=== PATIENT | female | born 1990 | race Caucasian/White ===

== ENCOUNTER 2017-12-15 16:13 | Inpatient (IN) | payer MEDICAID ==
--- NOTE | 2017-12-15 17:04 | ER Document Report ---
ED Medical Screen (RME) - General Chief Complaint: High Blood Sugar Stated Complaint: NAUSEA,DIZZY,WEAK Time Seen by Provider: 12/15/17 17:04 Mode of Arrival: Ambulatory Information source: Patient Notes: 27 yr old female hx of diabetes presents with complaitns of nausea vomiting concerns for dka I have greeted and performed a rapid initial assessment of this patient. A comprehensive ED assessment and evaluation of the patient, analysis of test results and completion of the medical decision making process will be conducted by additional ED providers. PHYSICAL EXAMINATION: GENERAL: Well-appearing, well-nourished and in no acute distress. HEAD: Atraumatic, normocephalic. EYES: Pupils equal round extraocular movements intact, conjunctiva are normal. ENT: Nares patent NECK: Normal range of motion LUNGS: No respiratory distress Musculoskeletal: Normal range of motion NEUROLOGICAL: Normal speech, normal gait. PSYCH: Normal mood, normal affect. SKIN: Warm, Dry, normal turgor, no rashes or lesions noted. TRAVEL OUTSIDE OF THE [place] IN LAST 30 DAYS: No - Related Data Allergies/Adverse Reactions: chlorpromazine [From Thorazine] Allergy (Verified 12/15/17 16:18) diazepam [From Valium] Allergy (Verified 12/15/17 16:18) lamotrigine [From Lamictal] Allergy (Verified 12/15/17 16:18) lorazepam [From Ativan] Allergy (Verified 12/15/17 16:18) medroxyprogesterone [From Depo-Provera] Allergy (Verified 12/15/17 16:18) morphine Allergy (Verified 12/15/17 16:18) zolpidem [From Ambien] Allergy (Verified 12/15/17 16:18)
--- NOTE | 2017-12-15 17:19 | ER Document Report ---
ED Blood Sugar Problem <LUNA MCCOY - Last Filed: 12/15/17 19:54> - General Mode of Arrival: Ambulatory Information source: Patient TRAVEL OUTSIDE OF THE [place] IN LAST 30 DAYS: No <JOSS MORAES - Last Filed: 12/17/17 15:32> - General Chief Complaint: High Blood Sugar Stated Complaint: NAUSEA,DIZZY,WEAK Time Seen by Provider: 12/15/17 17:04 Notes: Patient is a 27 year old female with insulin dependent diabetes, familial polyposis and stage 2 renal failure presents to the emergency department complaining of multiple symptoms including nausea, vomiting, dizziness and weakness onset yesterday. Patient states she has vomited 5x today. Patient mentions running out of insulin yesterday. Patient recently moved here from [place] and has yet to establish primary care. Patient is currently taking Abilify, Lisinopril, and Omeprazole. (JOSS MORAES) - Related Data Allergies/Adverse Reactions: chlorpromazine [From Thorazine] Allergy (Verified 12/16/17 00:31) Hives diazepam [From Valium] Allergy (Verified 12/16/17 00:31) Hives lamotrigine [From Lamictal] Allergy (Verified 12/16/17 00:31) Hives lorazepam [From Ativan] Allergy (Verified 12/16/17 00:31) Hives medroxyprogesterone [From Depo-Provera] Allergy (Verified 12/16/17 00:31) Hives morphine Adverse Reaction (Verified 12/16/17 00:31) Hyperactivity zolpidem [From Ambien] Adverse Reaction (Verified 12/16/17 00:31) panic attack Past Medical History - General Information source: Patient - Social History Smoking Status: Never Smoker Chew tobacco use (# tins/day): No Frequency of alcohol use: Occasional Drug Abuse: None Family History: Reviewed & Not Pertinent Patient has suicidal ideation: No Patient has homicidal ideation: No Endocrine Medical History: Reports: Hx Diabetes Mellitus Type 1 Renal/ Medical History: Reports: Other - Stage II renal disease GI Medical History: Reports: Other - Familial polyposis Psychiatric Medical History: Reports: Hx Anxiety, Hx Bipolar Disorder, Hx Post Traumatic Stress Disorder Past Surgical History: Reports: Hx Bowel Surgery - Total colectomy, previous ileostomy. <JOSS MORAES - Last Filed: 12/17/17 15:32> Review of Systems - Review of Systems Constitutional: See HPI, Weakness EENT: No symptoms reported Cardiovascular: See HPI, Dizziness Respiratory: No symptoms reported Gastrointestinal: See HPI, Abdominal pain, Nausea, Vomiting Genitourinary: No symptoms reported Female Genitourinary: No symptoms reported Musculoskeletal: No symptoms reported Skin: No symptoms reported Hematologic/Lymphatic: No symptoms reported Neurological/Psychological: No symptoms reported -: Yes All other systems reviewed and negative <JOSS MORAES - Last Filed: 12/17/17 15:32> Physical Exam - General General appearance: Alert, Other - Appears sluggish In distress: None - HEENT Head: Normocephalic, Atraumatic Eyes: Normal Conjunctiva: Normal Extraocular movements intact: Yes Pupils: PERRL Neck: Normal - Respiratory Respiratory status: No respiratory distress Chest status: Nontender Breath sounds: Normal Chest palpation: Normal - Cardiovascular Rhythm: Regular Heart sounds: Normal auscultation Murmur: No Friction rub: No Gallop: None auscultated - Abdominal Inspection: Obese Bowel sounds: Normal Tenderness: Nontender Organomegaly: No organomegaly - Back Back: Normal - Extremities General upper extremity: Normal ROM General lower extremity: Normal ROM - Neurological Neuro grossly intact: Yes Cognition: Normal Orientation: AAOx4 Simone Coma Scale Eye Opening: Spontaneous [place] Coma Scale Verbal: Oriented Simone Coma Scale Motor: Obeys Commands [place] Coma Scale Total: 15 Speech: Normal - Psychological Associated symptoms: Normal affect, Normal mood - Skin Skin Temperature: Warm Skin Moisture: Dry Skin Color: Normal <JOSS MORAES - Last Filed: 12/17/17 15:32> - Vital signs Vitals: Resp Pulse Ox 39 H 99 12/15/17 17:07 12/15/17 17:07 Course - Laboratory Result Diagrams: 12/15/17 18:03 12/15/17 18:03 - EKG Interpretation by Me EKG shows normal: Sinus rhythm, [place], Intervals, QRS Complexes, ST-T Waves Rate: Tachycardia - 102 When compared to previous EKG there are: Previous EKG unavailable - Consults Dr. Chu Time consulted: 19:40 Consulted provider: will come to ER <LUNA MCCOY - Last Filed: 07/01/18 19:54> - Laboratory Result Diagrams: 12/17/17 04:00 12/17/17 08:00 <JOSS MORAES - Last Filed: 12/17/17 15:32> - Vital Signs Vital signs: Temp Pulse Resp BP Pulse Ox 36.9 F L 86 15 113/62 99 12/17/17 13:33 12/17/17 13:33 12/17/17 13:33 12/17/17 13:33 12/17/17 13:33 - Laboratory Laboratory results interpreted by me: 12/15/17 12/15/17 12/15/17 17:24 17:50 18:03 WBC 21.4 H Hct 47.1 H MCV 99 H Seg Neuts % (Manual) 79 H Abs Neuts (Manual) 16.9 H VBG pH VBG pCO2 VBG HCO3 Potassium Chloride Carbon Dioxide Anion Gap BUN Glucose POC Glucose > 550 H* Lactic Acid Calcium Phosphorus Direct Bilirubin Alkaline Phosphatase Creatine Kinase Urine Glucose (UA) >=500 H Urine Ketones 80 H Urine Blood SMALL H 12/15/17 12/15/17 12/15/17 18:03 18:03 18:03 WBC Hct MCV Seg Neuts % (Manual) Abs Neuts (Manual) VBG pH 7.14 L* VBG pCO2 25.8 L VBG HCO3 8.6 L Potassium 5.2 H Chloride 96 L Carbon Dioxide 8 L* Anion Gap 33 H BUN 25 H Glucose 761 H* POC Glucose Lactic Acid 3.4 H Calcium 11.3 H Phosphorus 8.0 H Direct Bilirubin 0.6 H Alkaline Phosphatase 151 H Creatine Kinase < 20 L Urine Glucose (UA) Urine Ketones Urine Blood Critical Care Note - Critical Care Note Total time excluding time spent on procedures (mins): 40 <LUNA MCCOY - Last Filed: 12/15/17 19:54> Discharge - Discharge Admitting Provider: Hospitalist Unit Admitted: ICU <LUNA MCCOY - Last Filed: 12/15/17 19:54> <JOSS MORAES - Last Filed: 12/17/17 15:32> - Discharge Clinical Impression: Has run out of medications, Bipolar disorder Diabetic ketoacidosis Qualifiers: Diabetes mellitus type: type 1 Nausea & vomiting Qualifiers: Vomiting type: unspecified Vomiting Intractability: non-intractable Qualified Code(s): R11.2 - Nausea with vomiting, unspecified Condition: Good Disposition: ADMITTED INPATIENT Scribe Attestation: 12/15/17 19:42 I personally performed the services described in the documentation, reviewed and edited the documentation which was dictated to the scribe in my presence, and it accurately records my words and actions. (LUNA MCCOY) Scribe Documentation - Scribe Written by Scribe:: Antonieta Hernadez, 12/15/2017 17:38 acting as scribe for :: Lilia <JOSS MORAES - Last Filed: 12/17/17 15:32>
[2017-12-15] MEDS ORDERED: METOCLOPRAMIDE HCL INJ/PF 10 MG/2 ML SDV IV ONE ×2 (17:43→19:05)
[2017-12-15] MEDS ORDERED: INSULIN REG, HUMAN 100 UNIT/ML 3 ML VIAL (PYX) IV ONE (17:44)
[2017-12-15] MEDS ORDERED: ONDANSETRON 4 MG TAB.RAPDIS PO ONE (17:44)
[2017-12-15] MEDS: NORMAL SALINE 1000 ML 1,000 ML IV PRN ×2 (18:12→18:37)
[2017-12-15 18:21] LABS: VENOUS BLOOD BASE EXCESS -18.7 mmol/L; VENOUS BLOOD HCO3 8.6 mmol/L (20-32); VENOUS BLOOD PCO2 25.8 mmHg (35-63)
[2017-12-15 18:24] LABS: APPEARANCE,URINE CLEAR; BILIRUBIN,URINE NEGATIVE (NEGATIVE); COLOR,URINE STRAW; GLUCOSE, URINE >=500 mg/dL (NEGATIVE); KETONES,URINE 80 mg/dL (NEGATIVE); LEUKOCYTE ESTERASE,URINE NEGATIVE (NEGATIVE); NITRITE,URINE NEGATIVE (NEGATIVE); PROTEIN,URINE NEGATIVE (NEGATIVE); URINE SPECIFIC GRAVITY 1.024; UROBILINOGEN,URINE NEGATIVE mg/dL (<2.0)
[2017-12-15 18:24] LABS: VENOUS BLOOD PH 7.14 (7.30-7.42)
[2017-12-15 18:27] LABS: HEMATOCRIT 47.1 % (36.0-47.0); HEMOGLOBIN 15.5 g/dL (12.0-15.5); MEAN CORPUSCULAR HEMOGLOBIN 32.4 pg (27.0-33.4); MEAN CORPUSCULAR HGB CONC 32.9 g/dL (32.0-36.0); MEAN CORPUSCULAR VOLUME 99 fl (80-97); PLATELET COUNT 343 10^3/uL (150-450); RED BLOOD COUNT 4.78 10^6/uL (3.72-5.28); RED CELL DISTRIBUTION WIDTH 13.2 % (11.5-14.0); WHITE BLOOD COUNT 21.4 10^3/uL (4.0-10.5)
[2017-12-15 18:37] LABS: ALANINE AMINOTRANSFERASE 28 U/L (9-52); ALBUMIN 4.9 g/dL (3.5-5.0); ALKALINE PHOSPHATASE 151 U/L (38-126); ASPARTATE AMINO TRANSFERASE 16 U/L (14-36); BILIRUBIN,DIRECT 0.6 mg/dL (0.0-0.4); BILIRUBIN,TOTAL 1.1 mg/dL (0.2-1.3); BLOOD UREA NITROGEN 25 mg/dL (7-20); CALCIUM 11.3 mg/dL (8.4-10.2); TOTAL PROTEIN 7.7 g/dL (6.3-8.2)
[2017-12-15 18:41] LABS: CREATINE KINASE < 20 U/L (30-135)
[2017-12-15 18:42] LABS: CHLORIDE 96 mmol/L (98-107); POTASSIUM 5.2 mmol/L (3.6-5.0); SODIUM 137.4 mmol/L (137-145)
[2017-12-15 18:44] LABS: ABSOLUTE LYMPHOCYTES# (MANUAL) 3.9 10^3/uL (0.5-4.7); ABSOLUTE MONOCYTES # (MANUAL) 0.6 10^3/uL (0.1-1.4); ABSOLUTE NEUTROPHILS# (MANUAL) 16.9 10^3/uL (1.7-8.2); BASOPHILS % (MANUAL) 0 % (0-2); EOSINOPHILS % (MANUAL) 0 % (0-6); LYMPHOCYTES % (MANUAL) 18 % (13-45); MONOCYTES % (MANUAL) 3 % (3-13); PLATELET CLUMPS PRESENT; PLATELET COMMENT ADEQUATE; RBC MORPHOLOGY COMMENT NORMO-CYTIC/CHROMIC; SEGMENTED NEUTROPHILS % (MAN) 79 % (42-78); TOTAL CELLS COUNTED 100
[2017-12-15] MEDS ORDERED: NORMAL SALINE 1000 ML 1,000 ML IV ONE (18:44)
[2017-12-15 18:46] LABS: ANION GAP 33 (5-19)
[2017-12-15 18:49] LABS: CARBON DIOXIDE 8 mmol/L (22-30); GLUCOSE 761 mg/dL (75-110)
[2017-12-15 19:01] LABS: URINE AMPHETAMINES SCREEN NEGATIVE; URINE BARBITURATES SCREEN NEGATIVE; URINE BENZODIAZEPINES SCREEN NEGATIVE; URINE COCAINE SCREEN NEGATIVE; URINE MARIJUANA (THC) SCREEN UNCONFIRMED POSITIVE; URINE METHADONE SCREEN NEGATIVE; URINE PHENCYCLIDINE SCREEN NEGATIVE
[2017-12-15] MEDS ORDERED: DEXTROSE 50%-WATER 25 GM/50 ML DISP.SYRIN IV PRN ×5 (20:48→21:01)
[2017-12-15] MEDS ORDERED: GLUCAGON,HUMAN RECOMB 1 MG INJ IM PRN ×2 (20:48→21:01)
[2017-12-15] MEDS ORDERED: GLUCAGON,HUMAN RECOMB 1 MG INJ SUBCUT PRN (20:48)
[2017-12-15] MEDS ORDERED: ONDANSETRON HCL INJ/PF 4 MG/2 ML SDV IV PRN (20:48)
[2017-12-15] MEDS ORDERED: NORMAL SALINE 1000 ML 1,000 ML IV PRN (20:48)
[2017-12-15] MEDS ORDERED: ACETAMINOPHEN 325 MG TABLET PO PRN (20:48)
[2017-12-15] MEDS ORDERED: DEXTROSE 40% GEL 15 GM TUBE PO PRN ×6 (20:48→21:01)
[2017-12-15] MEDS ORDERED: NORMAL SALINE 100 ML with INSULIN REGULAR, HUMAN 100 UNIT IV PRN ×2 (21:01)
[2017-12-15 21:17] LABS: PROTHROMBIN TIME 13.7 SEC (11.4-15.4)
[2017-12-15 21:18] LABS: PARTIAL THROMBOPLASTIN TIME 29.7 SEC (23.5-35.8)
[2017-12-15] MEDS ORDERED: PROMETHAZINE HCL 25 MG SUPP.RECT PR ONE (21:23)
--- NOTE | 2017-12-15 21:59 | RADIOLOGY REPORT (SQ) ---
EXAM DESCRIPTION: CHEST SINGLE VIEW COMPLETED DATE/TIME: 12/15/2017 9:52 pm REASON FOR STUDY: DKA COMPARISON: None. EXAM PARAMETERS: NUMBER OF VIEWS: One view. TECHNIQUE: Single frontal radiographic view of the chest acquired. RADIATION DOSE: NA LIMITATIONS: None. FINDINGS: LUNGS AND PLEURA: No opacities, masses or pneumothorax. No pleural effusion. MEDIASTINUM AND HILAR STRUCTURES: No masses. Contour normal. HEART AND VASCULAR STRUCTURES: Heart normal in size. Normal vasculature. BONES: No acute findings. HARDWARE: None in the chest. OTHER: No other significant finding. IMPRESSION: NO ACUTE RADIOGRAPHIC FINDING IN THE CHEST. TECHNICAL DOCUMENTATION: JOB ID: [id number] [employer]- All Rights Reserved Reading location - IP/workstation name: [email or web address]
[2017-12-15] MEDS ORDERED: INSULIN REG, HUMAN 100 UNIT/ML 3 ML VIAL (PYX) ONE (22:32)
[2017-12-15] MEDS: PANTOPRAZOLE SODIUM 40 MG VIAL IV SCH (22:45)
[2017-12-15] MEDS: HEPARIN SOD (PORCINE) 5,000 UNIT/ML 1 ML SYRINGE SUBCUT SCH (22:46)
--- NOTE | 2017-12-15 23:08 | PDOC H&P ---
History of Present Illness Admission Date/PCP: 12/15/17 20:01 Patient complains of: Nausea vomiting History of Present Illness: GERALDO DUNBAR is a 27 year old woman who has type 1 diabetes. She not able to tell me much of the history as she is feeling nauseated. She also tells me that she has told several people the story already and she would prefer I get the information from them. What she was able to tell me is that she just moved from [place] to [place] to live with her boyfriend. She is working on getting her SSI transferred to [place] and does not have her insurance yet and yesterday she ran out of insulin for her insulin pump. Earlier today she started to have some chest discomfort along with nausea vomiting and abdominal pain. Her blood glucose was very elevated and secondary to all of those findings and extreme weakness she came into the ER. She has been diagnosed with diabetic ketoacidosis and is being admitted to the hospitalist service, to the ICU. Past Medical History Cardiac Medical History: Denies: Atrial Fibrillation, Congestive Heart Failure Pulmonary Medical History: Denies: Asthma EENT Medical History: Denies: Eyes, Ears Neurological Medical History: Denies: Ischemic CVA Endocrine Medical History: Reports: Diabetes Mellitus Type 1 Renal/ Medical History: Reports: Chronic Kidney Disease, Other - Stage II renal disease Malignancy Medical History: Denies: None GI Medical History: Reports: Other - Familial polyposis Musculoskeltal Medical History: Denies: Arthritis Skin Medical History: Reports: Eczema Denies: None Psychiatric Medical History: Reports: Bipolar Disorder, Post Traumatic Stress Disorder Hematology: Denies: Anemia, Sickle Cell Disease Infectious Medical History: Reports: Other Infectious History Note: Unknown Past Surgical History Past Surgical History: Reports: Other - 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 Social History Information Source: Patient, Emergency Med Personnel, [facility] Records Occupation: Unemployed currently, just moved from [place] Lives with: Spouse/Significant other Smoking Status: Never Smoker Frequency of Alcohol Use: Rare Hx Recreational Drug Use: Yes - Marijuana Hx Prescription Drug Abuse: No - Advance Directive Resuscitation Status: Full Code Surrogate healthcare decision maker:: Adelso justice. Phone [phone] Family History Parental Family History Reviewed: Yes - Mother has bipolar disorder, father familial polyposis Children Family History Reviewed: Yes - one healthy son Sibling(s) Family History Reviewed.: Yes - No significant history Medication/Allergy Allergies/Adverse Reactions: chlorpromazine [From Thorazine] Allergy (Verified 12/15/17 16:18) diazepam [From Valium] Allergy (Verified 12/15/17 16:18) lamotrigine [From Lamictal] Allergy (Verified 12/15/17 16:18) lorazepam [From Ativan] Allergy (Verified 12/15/17 16:18) medroxyprogesterone [From Depo-Provera] Allergy (Verified 12/15/17 16:18) morphine Allergy (Verified 12/15/17 16:18) zolpidem [From Ambien] Allergy (Verified 12/15/17 16:18) Review of Systems ROS unobtainable: Other - Due to feeling too nauseated, she does not answer all review of systems questions so I cannot obtain full review All systems: reviewed and no additional remarkable complaints except as stated Constitutional: PRESENT: anorexia, fatigue Cardiovascular: PRESENT: chest pain. ABSENT: dyspnea on exertion, edema Gastrointestinal: PRESENT: abdominal pain, diarrhea - Chronic diarrhea, nausea, vomiting. ABSENT: hematochezia, melena Genitourinary: ABSENT: difficulty urinating, dysuria, hematuria Musculoskeletal: ABSENT: back pain Integumentary: ABSENT: erythema, wounds Neurological: PRESENT: weakness. ABSENT: abnormal speech, confusion, dizziness , syncope Psychiatric: PRESENT: anxiety, depression Endocrine: PRESENT: other - Insulin pump, other episodes of DKA and hospitalization in the past Hematologic/Lymphatic: ABSENT: easy bleeding, easy bruising, lymphadenopathy Allergic/Immunologic: ABSENT: seasonal rhinorrhea Physical Exam General appearance: PRESENT: disheveled, mild distress, obese Head exam: PRESENT: atraumatic, normocephalic Eye exam: PRESENT: conjunctiva pink, EOMI. ABSENT: periorbital swelling, scleral icterus Mouth exam: PRESENT: dry mucosa, neck supple, tongue midline Neck exam: ABSENT: lymphadenopathy, tenderness Respiratory exam: PRESENT: clear to auscultation ruth, unlabored. ABSENT: chest wall tenderness, crackles, decreased breath sounds, rales, rhonchi, wheezes Cardiovascular exam: PRESENT: tachycardia. ABSENT: systolic murmur - split S2 Pulses: PRESENT: normal radial pulses Vascular exam: PRESENT: normal capillary refill GI/Abdominal exam: PRESENT: normal bowel sounds, soft. ABSENT: distended, firm , guarding, tenderness Rectal exam: PRESENT: deferred Gentrourinary exam: ABSENT: indwelling catheter Extremities exam: ABSENT: pedal edema Musculoskeletal exam: PRESENT: ambulatory. ABSENT: deformity Neurological exam: PRESENT: alert, awake, oriented to person, oriented to place , oriented to situation, CN II-XII grossly intact Psychiatric exam: PRESENT: anxious Skin exam: PRESENT: dry, intact, warm Results Impressions: Chest X-Ray 12/15/17 00:00 IMPRESSION: NO ACUTE RADIOGRAPHIC FINDING IN THE CHEST. Assessment & Plan - Diagnosis (1) Diabetic ketoacidosis Qualifiers: Diabetes mellitus type: type 1 Diabetes mellitus complication detail: without coma Qualified Code(s): E10.10 - Type 1 diabetes mellitus with ketoacidosis without coma Is this a current diagnosis for this admission?: Yes Plan: Patient has an insulin pump for her type 1 diabetes. She just moved here from [place] and ran out of her insulin yesterday. She has diabetic ketoacidosis currently. She is being admitted to the hospitalist service on an insulin drip. She is still undergoing fluid hydration and electrolytes are being checked every 2 hours. Unfortunately secondary to difficulty with IV access I have ordered a surgery consult for central line placement for tonight. Her lactic acid level is slightly elevated and I will follow that. Diabetic nutrition teaching ordered. Etiology of DKA is likely that she ran out of her medications. Nonetheless I have ordered troponins, lipase, chest x-ray, blood cultures to assess for other underlying etiology of DKA. UA is negative. (2) Bipolar disorder Qualifiers: Psychotic features: without psychotic features Is this a current diagnosis for this admission?: Yes Plan: Patient is on Abilify 10 mg . Start this medication once she is no longer having emesis. (3) Has run out of medications Is this a current diagnosis for this admission?: Yes Plan: Have ordered case management consult to assess for needs. (4) Nausea & vomiting Qualifiers: Vomiting type: unspecified Vomiting Intractability: non-intractable Qualified Code(s): R11.2 - Nausea with vomiting, unspecified Is this a current diagnosis for this admission?: Yes Plan: Likely secondary to DKA. Lipase has been ordered. Will order her home meds once she is no longer having vomiting. We tried some Reglan and Zofran with out to good effect. I have ordered a Phenergan suppository 12.5 mg 1 and will see how she does with this. She is being fluid hydrated. (5) Depression with anxiety Is this a current diagnosis for this admission?: Yes Plan: Patient is on Cymbalta and gabapentin. She states that the gabapentin is not neuropathy but is for her anxiety. Will start these medications when she stops vomiting. (6) Hyperlipidemia Is this a current diagnosis for this admission?: Yes Plan: Patient is on atorvastatin 40 mg daily. Will start this when she stops vomiting. (7) GERD (gastroesophageal reflux disease) Is this a current diagnosis for this admission?: Yes Plan: have started IV PPI - Time Time Spent: 50 to 70 Minutes Medications reviewed and adjusted accordingly: Yes - Inpatient Certification Based on my medical assessment, after consideration of the patient's comorbidities, presenting symptoms, or acuity I expect that the services needed warrant INPATIENT care.: Yes I certify that my determination is in accordance with my understanding of Medicare's requirements for reasonable and necessary INPATIENT services [42 CFR 412.3e].: Yes Medical Necessity: Need For IV Fluids, Need For Continuous Telemetry Monitoring
[2017-12-15] MEDS ORDERED: ATORVASTATIN CALCIUM 40 MG TABLET PO ONE (23:45)
[2017-12-15] MEDS ORDERED: PROMETHAZINE HCL INJ 25 MG/1 ML VIAL IV ONE (23:45)
[2017-12-15] MEDS ORDERED: PROMETHAZINE HCL INJ 25 MG/1 ML VIAL ONE (23:45)
[2017-12-16 00:24] LABS: ARTERIAL BLOOD BASE EXCESS -20.6 mmol/L; ARTERIAL BLOOD H2CO3 0.97 mmol/L (1.05-1.35); ARTERIAL BLOOD HCO3 8.8 mmol/L (20-26); ARTERIAL BLOOD O2 SATURATION 42.2 % (94-98); ARTERIAL BLOOD PCO2 32.2 mmHg (35-45); ARTERIAL BLOOD TOTAL CO2 9.8 mmol/L (21-25)
[2017-12-16 00:25] LABS: ARTERIAL BLOOD FIO2 ROOM AIR
[2017-12-16 00:26] LABS: ARTERIAL BLOOD PH 7.06 (7.35-7.45); ARTERIAL BLOOD PO2 32.7 mmHg (80-100)
[2017-12-16 00:29] LABS: BLOOD UREA NITROGEN 19 mg/dL (7-20); LIPASE 33.4 U/L (23-300); POTASSIUM 4.7 mmol/L (3.6-5.0)
[2017-12-16 00:35] LABS: CHLORIDE 112 mmol/L (98-107); GLUCOSE 397 mg/dL (75-110); SODIUM 144.8 mmol/L (137-145)
[2017-12-16] MEDS: POTASSI CL 20 MEQ/NS 1L 1,000 ML IV PRN ×2 (00:37→05:42)
[2017-12-16 00:53] LABS: ANION GAP 24 (5-19)
[2017-12-16 00:54] LABS: CARBON DIOXIDE 9 mmol/L (22-30)
[2017-12-16] MEDS ORDERED: ONDANSETRON HCL INJ/PF 4 MG/2 ML SDV ONE (01:06)
[2017-12-16 01:11] LABS: ARTERIAL BLOOD BASE EXCESS -20.3 mmol/L; ARTERIAL BLOOD H2CO3 0.58 mmol/L (1.05-1.35); ARTERIAL BLOOD HCO3 6.5 mmol/L (20-26); ARTERIAL BLOOD O2 SATURATION 97.5 % (94-98); ARTERIAL BLOOD PO2 123.2 mmHg (80-100); ARTERIAL BLOOD TOTAL CO2 7.1 mmol/L (21-25)
[2017-12-16 01:24] LABS: ARTERIAL BLOOD FIO2 ROOM AIR
[2017-12-16 01:25] LABS: ARTERIAL BLOOD PH 7.15 (7.35-7.45)
[2017-12-16 01:26] LABS: ARTERIAL BLOOD PCO2 19.4 mmHg (35-45)
[2017-12-16] MEDS ORDERED: PROMETHAZINE HCL INJ 25 MG/1 ML VIAL IV ONE (02:30)
[2017-12-16] MEDS ORDERED: NORMAL SALINE INJ/PF 0.9% 10 ML SDV IV PRN (02:51)
[2017-12-16 02:54] LABS: BLOOD UREA NITROGEN 17 mg/dL (7-20); CALCIUM 8.9 mg/dL (8.4-10.2); GLUCOSE 310 mg/dL (75-110); POTASSIUM 4.7 mmol/L (3.6-5.0)
[2017-12-16 03:00] LABS: CHLORIDE 115 mmol/L (98-107); SODIUM 148.5 mmol/L (137-145)
[2017-12-16 03:07] LABS: ANION GAP 25 (5-19)
[2017-12-16 03:08] LABS: CARBON DIOXIDE 9 mmol/L (22-30)
[2017-12-16] MEDS: NORMAL SALINE 1000 ML 1,000 ML IV PRN ×2 (03:38→05:42)
--- NOTE | 2017-12-16 03:45 | OPERATIVE REPORT E ---
Operative Report NAME: GERALDO DUNBAR : 1990 AGE: 27Y DATE OF SURGERY: 12/15/2017 ROOM: 608 PREOPERATIVE DIAGNOSIS: POOR VEINS FOR INTRAVENOUS ACCESS. POSTOPERATIVE DIAGNOSIS: POOR VEINS FOR INTRAVENOUS ACCESS. PROCEDURE: Placement of central line. SURGEON: ANKIT RAY M.D. ANESTHESIA: Local. INDICATION: A 27-year-old female admitted for DKA, needed IV access since peripheral veins are difficult to get. DESCRIPTION OF PROCEDURE: The patient is placed in Trendelenburg position and the left neck prepped and draped in usual sterile fashion. With use of the ultrasound, the left internal jugular vein is identified. Local incision infiltrated along the path of the internal jugular vein and subsequently aspirated and a guidewire placed through the needle, advanced to the superior vena cava. The insertion site was dilated and a triple-lumen catheter inserted to a distance of about 15 cm. The guidewire was removed and all 3 ports aspirated blood easily and infused saline easily. Catheter was then anchored in the skin with 3-0 silk and Biopatch placed at the insertion site and transparent dressing placed over the Biopatch and catheter. Chest x-ray will be obtained for placement. The patient tolerated the procedure well. DICTATING PHYSICIAN: ANKIT RAY M.D. [id number] PHY#: [id number] ID: [id number] JOB#: [id number] ACCT: [id number] cc:ANKIT RAY M.D. >
[2017-12-16 05:07] LABS: ANION GAP 16 (5-19); BLOOD UREA NITROGEN 16 mg/dL (7-20); CALCIUM 8.1 mg/dL (8.4-10.2); CARBON DIOXIDE 12 mmol/L (22-30); CHLORIDE 119 mmol/L (98-107); GLUCOSE 219 mg/dL (75-110); POTASSIUM 4.7 mmol/L (3.6-5.0); SODIUM 147.3 mmol/L (137-145)
[2017-12-16] MEDS ORDERED: NORMAL SALINE 1000 ML 1,000 ML IV PRN (05:25)
[2017-12-16] MEDS: GABAPENTIN 300 MG CAPSULE PO SCH ×3 (05:33→21:07)
[2017-12-16] MEDS: HEPARIN SOD (PORCINE) 5,000 UNIT/ML 1 ML SYRINGE SUBCUT SCH ×3 (05:42→21:08)
[2017-12-16 06:39] LABS: ANION GAP 17 (5-19); BLOOD UREA NITROGEN 14 mg/dL (7-20); CALCIUM 7.8 mg/dL (8.4-10.2); CARBON DIOXIDE 11 mmol/L (22-30); CHLORIDE 121 mmol/L (98-107); CHOLESTEROL 109.48 mg/dL (0-200); GLUCOSE 191 mg/dL (75-110); SODIUM 149.2 mmol/L (137-145); TRIGLYCERIDES 150 mg/dL (<150)
[2017-12-16 06:50] LABS: DIRECT LDL 54 mg/dL (<100)
--- NOTE | 2017-12-16 06:53 | EKG REPORT ---
SEVERITY:- NORMAL ECG - SINUS RHYTHM : Confirmed by: Shayla Dias MD 16-Dec-2017 06:53:09
--- NOTE | 2017-12-16 06:54 | EKG REPORT ---
SEVERITY:- OTHERWISE NORMAL ECG - SINUS TACHYCARDIA : Confirmed by: Shayla Dias MD 16-Dec-2017 06:53:13
[2017-12-16 07:22] LABS: PHOSPHORUS 2.8 mg/dL (2.5-4.5)
--- NOTE | 2017-12-16 07:22 | RADIOLOGY REPORT (SQ) ---
EXAM DESCRIPTION: CHEST SINGLE VIEW COMPLETED DATE/TIME: 12/15/2017 11:45 pm REASON FOR STUDY: Central Line Placement COMPARISON: 12/15/2017 at 2146 hours chest film EXAM PARAMETERS: NUMBER OF VIEWS: One view. TECHNIQUE: Single frontal radiographic view of the chest acquired. RADIATION DOSE: NA LIMITATIONS: None. FINDINGS: LUNGS AND PLEURA: No opacities, masses or pneumothorax. No pleural effusion. MEDIASTINUM AND HILAR STRUCTURES: No masses. Contour normal. HEART AND VASCULAR STRUCTURES: Heart normal in size. Normal vasculature. BONES: No acute findings. HARDWARE: Right jugular central venous catheter tip in the SVC/right atrium. No pneumothorax OTHER: No other significant finding. IMPRESSION: Right jugular line in good positioning. No pneumothorax TECHNICAL DOCUMENTATION: JOB ID: [id number] [employer]- All Rights Reserved Reading location - IP/workstation name: [email or web address]
[2017-12-16] MEDS ORDERED: POTASSI CL 20 MEQ/D5-1/2NS 1L 1,000 ML IV PRN (08:14)
[2017-12-16 08:57] LABS: HEMATOCRIT 36.4 % (36.0-47.0); MEAN CORPUSCULAR HGB CONC 33.9 g/dL (32.0-36.0); PLATELET COUNT 280 10^3/uL (150-450); RED BLOOD COUNT 3.86 10^6/uL (3.72-5.28); RED CELL DISTRIBUTION WIDTH 13.1 % (11.5-14.0)
[2017-12-16 08:58] LABS: MEAN CORPUSCULAR VOLUME 94 fl (80-97)
[2017-12-16 09:01] LABS: HEMOGLOBIN 12.3 g/dL (12.0-15.5)
[2017-12-16] MEDS: PANTOPRAZOLE SODIUM 40 MG VIAL IV SCH (10:08)
[2017-12-16] MEDS: DULOXETINE HCL 30 MG CAPSULE.DR PO SCH (10:08)
[2017-12-16] MEDS: ARIPIPRAZOLE 5 MG TABLET PO SCH (10:09)
[2017-12-16 10:38] LABS: ANION GAP 17 (5-19); BLOOD UREA NITROGEN 13 mg/dL (7-20); CALCIUM 8.1 mg/dL (8.4-10.2); CARBON DIOXIDE 12 mmol/L (22-30); CHLORIDE 120 mmol/L (98-107); GLUCOSE 171 mg/dL (75-110); POTASSIUM 4.3 mmol/L (3.6-5.0); SODIUM 149.2 mmol/L (137-145)
--- NOTE | 2017-12-16 11:40 | PROGRESS NOTE E ---
Progress Note NAME: GERALDO DUNBAR : 1990 AGE: 27Y DATE: 12/16/2017 ROOM: 608 CHIEF COMPLAINT: Nausea. SUBJECTIVE: The patient is lying in bed. The patient has had multiple episodes of nausea from vomiting, but mostly retching throughout the evening. The patient responded the best to Phenergan. It is interesting that the patient is unaware of her basal rate when she wears a pump. The patient is unable to even give me an idea of what her basal rate is. The patient states that when her pump is not working she does use Lantus and Humalog, but is unable to give me an exact amount that she uses. The patient thinks she uses 40 of Lantus, but is unable to give me basal rate coverage and so forth. Additionally, the patient does have chronic pain for which she treats with nonmedical marijuana as well as Neurontin. The patient, overnight, remained afebrile. Her blood pressures are in a good range, and the patient has been exclusively on room air. REVIEW OF SYSTEMS: Rest of review of systems is negative. MEDICATIONS: Medications have been reviewed. OBJECTIVE: GENERAL: The patient is a 27-year-old female who is awake, alert. She is oriented to person, place, time, and situation. She is verbal, conversational, does not appear to be distressed. VITAL SIGNS: Temperature is 98.7, pulse 89, respirations 22, blood pressure is 104/63, oxygen saturation is 100% on room air. SKIN: Warm and dry. No rash. She is not diaphoretic. HEENT: Pupils are reactive. There is no evidence of JVP. Ketotic breath. CHEST: Clear, symmetrical, unlabored. ABDOMEN: Soft, nontender, nondistended. BACK: No CVA tenderness or sacral edema. EXTREMITIES: No clubbing, cyanosis, edema. PSYCHIATRIC: The patient does have an odd affect. DIAGNOSTICS: Lab values are as follows: Hematology obtained on 12/16/2017 are pending. Hematology obtained on 12/15/2017: WBCs are 21.4, hemoglobin is 15.5, hematocrit is 27.1, platelet count is 343,000. Chemistry obtained on 12/16/2017: Sodium is 149, potassium 4.0, chloride is 121, carbon dioxide is 11, BUN 14, creatinine is 0.63, glucose 191, calcium is 7.8, phosphorus 2.8, magnesium is 1.7, triglycerides are 150, cholesterol 109, LDL 54, VLDL of 30, HDL is 35. IMPRESSION AND PLAN: 1. DIABETIC KETOACIDOSIS. The patient's gap is closed. She does remain acidotic from a metabolic standpoint. Will continue volume resuscitation; however, given the patient's blood glucose is less than 200, will transition over to D5 and a half with 20 of K. For fluids, continue at this point. Will continue the drip as the patient is still not able to tolerate significant and follow. 2. MEDICAL NONCOMPLIANCE. The patient came from [place] with no diabetic supplies. The patient is unable to give exact basal rates or coverage. Once the patient is able to tolerate p.o., will transition to subcu Lantus with sliding scale coverage and follow. 3. CHRONIC PAIN. APPEARS TO BE A PERIPHERAL NEUROPATHY. Continue the patient's Neurontin. 4. MARIJUANA USE. Uncertain of the degree of this. May possibly be an ailment of THC withdrawal or cyclic vomiting from THC. 5. DEPRESSION WITH ANXIETY. Continue the patient's home medications. 6. HYPERLIPIDEMIA. The patient is on Lipitor outpatient basis. 7. GERD. The patient continues on PPI therapy. DISPOSITION: The patient is a FULL CODE. Pending patient's symptomatology and diagnostic findings, will re-evaluate as needed. Time spent on this critical care visit including assessment, plan, physical examination, patient education, review of records is 30 minutes. DICTATING PHYSICIAN: KLEVER KHOURY NP [id number] PHY#: [id number] ID: [id number] JOB#: [id number] ACCT: [id number] cc: > [facility]
[2017-12-16 12:45] LABS: ANION GAP 13 (5-19); BLOOD UREA NITROGEN 11 mg/dL (7-20); CALCIUM 8.1 mg/dL (8.4-10.2); CARBON DIOXIDE 15 mmol/L (22-30); CHLORIDE 116 mmol/L (98-107); GLUCOSE 229 mg/dL (75-110); POTASSIUM 3.8 mmol/L (3.6-5.0); SODIUM 144.2 mmol/L (137-145)
[2017-12-16] MEDS ORDERED: INSULIN GLARGINE,HUM.REC.ANLOG 1,000 UNIT/10 ML UNIT SUBCUT ONE (13:27)
[2017-12-16] MEDS ORDERED: DEXTROSE 40% GEL 15 GM TUBE PO PRN ×3 (13:31→18:45)
[2017-12-16] MEDS ORDERED: GLUCAGON,HUMAN RECOMB 1 MG INJ IM PRN ×2 (13:31→18:45)
[2017-12-16] MEDS ORDERED: INSULIN LISPRO 100 UNIT/ML 3 ML VIAL SUBCUT PRN (13:31)
[2017-12-16] MEDS ORDERED: DEXTROSE 50%-WATER 25 GM/50 ML DISP.SYRIN IV PRN ×2 (13:31)
[2017-12-16] MEDS ORDERED: ONDANSETRON HCL INJ/PF 4 MG/2 ML SDV IV PRN (14:00)
[2017-12-16] MEDS ORDERED: INSULIN GLARGINE,HUM.REC.ANLOG 300 UNIT/3 ML INSULN.PEN SUBCUT ONE (15:00)
[2017-12-16] MEDS ORDERED: PROMETHAZINE HCL 25 MG SUPP.RECT PR PRN (15:38)
[2017-12-16] MEDS ORDERED: SCOPOLAMINE HYDROBROMIDE 1.5 MG PATCH.TD72 TD ONE (17:00)
[2017-12-16 18:20] LABS: BLOOD UREA NITROGEN 10 mg/dL (7-20); CALCIUM 8.4 mg/dL (8.4-10.2); GLUCOSE 348 mg/dL (75-110); POTASSIUM 3.5 mmol/L (3.6-5.0)
[2017-12-16 18:33] LABS: CHLORIDE 114 mmol/L (98-107)
[2017-12-16 18:34] LABS: ANION GAP 20 (5-19); SODIUM 141.9 mmol/L (137-145)
[2017-12-16 18:36] LABS: CARBON DIOXIDE 8 mmol/L (22-30)
[2017-12-16] MEDS ORDERED: DEXTROSE 50%-WATER SYRINGE 25 GM/50 ML DOSE IV PRN (18:45)
[2017-12-16] MEDS ORDERED: DEXTROSE 50%-WATER SYRINGE 12.5 GM/25 ML DOSE IV PRN (18:45)
[2017-12-16] MEDS ORDERED: INSULIN, REGULAR 100 UNIT/100 ML NORMAL SALINE IV PRN ×2 (18:45)
[2017-12-16] MEDS ORDERED: DEXTROSE 40% GEL 15 GM TUBE X 2 PO PRN (18:45)
[2017-12-16] MEDS ORDERED: NORMAL SALINE 1000 ML 1,000 ML IV ONE (19:00)
[2017-12-16 20:45] LABS: ANION GAP 16 (5-19); BLOOD UREA NITROGEN 8 mg/dL (7-20); CALCIUM 7.9 mg/dL (8.4-10.2); CHLORIDE 116 mmol/L (98-107); GLUCOSE 227 mg/dL (75-110); POTASSIUM 3.9 mmol/L (3.6-5.0); SODIUM 141.5 mmol/L (137-145)
[2017-12-16] MEDS: POTASSI CL 20 MEQ/50 ML RIDER 20 MEQ/50 ML RTUPB IV SCH ×2 (21:02→22:43)
[2017-12-16] MEDS: ATORVASTATIN CALCIUM 40 MG TABLET PO SCH (21:08)
[2017-12-16] MEDS: POTASSI CL 20 MEQ/D5-1/2NS 1L 1000 ML IV PRN (21:10)
[2017-12-16 21:29] LABS: CARBON DIOXIDE 10 mmol/L (22-30)
[2017-12-16] MEDS ORDERED: INSULIN GLARGINE,HUM.REC.ANLOG 300 UNIT/3 ML INSULN.PEN SUBCUT SCH (22:00)
[2017-12-17 00:23] LABS: ANION GAP 8 (5-19); BLOOD UREA NITROGEN 7 mg/dL (7-20); CALCIUM 7.9 mg/dL (8.4-10.2); CARBON DIOXIDE 17 mmol/L (22-30); CHLORIDE 116 mmol/L (98-107); GLUCOSE 139 mg/dL (75-110); POTASSIUM 3.8 mmol/L (3.6-5.0); SODIUM 140.7 mmol/L (137-145)
[2017-12-17] MEDS: POTASSI CL 20 MEQ/D5-1/2NS 1L 1000 ML IV PRN (02:04)
[2017-12-17 04:18] LABS: HEMATOCRIT 30.8 % (36.0-47.0); HEMOGLOBIN 10.7 g/dL (12.0-15.5); MEAN CORPUSCULAR HEMOGLOBIN 32.6 pg (27.0-33.4); MEAN CORPUSCULAR HGB CONC 34.9 g/dL (32.0-36.0); MEAN CORPUSCULAR VOLUME 93 fl (80-97); PLATELET COUNT 208 10^3/uL (150-450); RED CELL DISTRIBUTION WIDTH 13.3 % (11.5-14.0); WHITE BLOOD COUNT 12.3 10^3/uL (4.0-10.5)
[2017-12-17 04:50] LABS: ANION GAP 7 (5-19); BLOOD UREA NITROGEN 5 mg/dL (7-20); CALCIUM 7.7 mg/dL (8.4-10.2); CARBON DIOXIDE 16 mmol/L (22-30); CHLORIDE 116 mmol/L (98-107); GLUCOSE 181 mg/dL (75-110); POTASSIUM 3.7 mmol/L (3.6-5.0); SODIUM 139.1 mmol/L (137-145)
[2017-12-17] MEDS ORDERED: POTASSI CL 20 MEQ/D5-1/2NS 1L 1000 ML IV PRN (06:00)
[2017-12-17] MEDS: POTASSIUM CHLORIDE 20 MEQ/15 ML UDCUP PO SCH ×2 (06:18→08:28)
[2017-12-17] MEDS: GABAPENTIN 300 MG CAPSULE PO SCH ×3 (06:19→22:56)
[2017-12-17] MEDS: HEPARIN SOD (PORCINE) 5,000 UNIT/ML 1 ML SYRINGE SUBCUT SCH ×3 (06:20→22:56)
[2017-12-17 09:11] LABS: ANION GAP 6 (5-19); BLOOD UREA NITROGEN 4 mg/dL (7-20); CALCIUM 8.2 mg/dL (8.4-10.2); CARBON DIOXIDE 18 mmol/L (22-30); CHLORIDE 118 mmol/L (98-107); GLUCOSE 88 mg/dL (75-110); POTASSIUM 3.9 mmol/L (3.6-5.0); SODIUM 142.4 mmol/L (137-145)
[2017-12-17] MEDS: ARIPIPRAZOLE 5 MG TABLET PO SCH (10:10)
[2017-12-17] MEDS: DULOXETINE HCL 30 MG CAPSULE.DR PO SCH (10:10)
[2017-12-17] MEDS ORDERED: INSULIN LISPRO 100 UNIT/ML 3 ML VIAL SUBCUT ONE (11:30)
[2017-12-17] MEDS ORDERED: INSULIN GLARGINE,HUM.REC.ANLOG 1,000 UNIT/10 ML UNIT SUBCUT ONE (11:30)
--- NOTE | 2017-12-17 13:51 | PDOC PROGRESS REPORT ---
Subjective Progress Note for:: 12/17/17 Subjective:: This is a 27 years old female patient admitted in DKA. This morning I seen patient while she is resting in bed. She is awake alert oriented and she is eager to go home. But patient is still on insulin drip. After patient tolerated her breakfast we discontinued the drip and started on Lantus and Humalog. Blood glucose is 195. Patient downgraded and will be transferred to the [facility]. Reason For Visit: DIABETIC KETOACIDOSIS Physical Exam Vital Signs: Temp Pulse Resp BP Pulse Ox 36.9 F L 86 15 113/62 99 12/17/17 13:33 12/17/17 13:33 12/17/17 13:33 12/17/17 13:33 12/17/17 13:33 Intake & Output 12/16/17 12/17/17 12/18/17 06:59 06:59 06:59 Intake Total 5375 6601 Output Total 2625 2300 1000 Balance 2750 4301 -1000 Weight 87.5 kg Results Laboratory Results: 12/17/17 04:00 12/17/17 08:00 12/16/17 12/16/17 12/17/17 16:55 20:00 00:00 WBC RBC Hgb Hct MCV MCH MCHC RDW Plt Count Sodium 141.9 141.5 140.7 Potassium 3.5 L 3.9 3.8 Chloride 114 H 116 H 116 H Carbon Dioxide 8 L* 10 L* 17 L Anion Gap 20 H 16 8 BUN 10 8 7 Creatinine 0.64 0.59 0.52 Est GFR ( Amer) > 60 > 60 > 60 Est GFR (Non-Af Amer) > 60 > 60 > 60 Glucose 348 H 227 H 139 H Calcium 8.4 7.9 L 7.9 L 12/17/17 12/17/17 12/17/17 04:00 04:00 08:00 WBC 12.3 H RBC 3.30 L Hgb 10.7 L Hct 30.8 L MCV 93 MCH 32.6 MCHC 34.9 RDW 13.3 Plt Count 208 Sodium 139.1 142.4 Potassium 3.7 3.9 Chloride 116 H 118 H Carbon Dioxide 16 L 18 L Anion Gap 7 6 BUN 5 L 4 L Creatinine 0.49 L 0.49 L Est GFR ( Amer) > 60 > 60 Est GFR (Non-Af Amer) > 60 > 60 Glucose 181 H 88 Calcium 7.7 L 8.2 L 12/16/17 12/16/17 00:07 02:00 Troponin I < 0.012 < 0.012 Impressions: Chest X-Ray 12/15/17 00:00 IMPRESSION: Right jugular line in good positioning. No pneumothorax Assessment & Plan - Diagnosis (1) Diabetic ketoacidosis Qualifiers: Diabetes mellitus type: type 1 Is this a current diagnosis for this admission?: Yes Plan: Her insulin drip discontinued and patient started on subcu Humalog and Lantus. Patient is well tolerates well. Her latest blood glucose level is 195. (3) Bipolar disorder Qualifiers: Psychotic features: without psychotic features Is this a current diagnosis for this admission?: Yes Plan: Current regimen.
[2017-12-17] MEDS: INSULIN LISPRO 100 UNIT/ML 3 ML VIAL SUBCUT PRN ×2 (16:45→22:55)
[2017-12-17] MEDS ORDERED: INSULIN GLARGINE,HUM.REC.ANLOG 300 UNIT/3 ML INSULN.PEN SUBCUT SCH (22:00)
[2017-12-17] MEDS ORDERED: DIPHENHYDRAMINE HCL 25 MG CAPSULE ONE (22:42)
[2017-12-17] MEDS ORDERED: DIPHENHYDRAMINE HCL 25 MG CAPSULE PO ONE (22:45)
[2017-12-17] MEDS: ATORVASTATIN CALCIUM 40 MG TABLET PO SCH (22:55)
[2017-12-17] MEDS: INSULIN GLARGINE,HUM.REC.ANLOG 1,000 UNIT/10 ML UNIT SUBCUT SCH (23:10)
[2017-12-18] MEDS: GABAPENTIN 300 MG CAPSULE PO SCH (05:37)
[2017-12-18] MEDS: HEPARIN SOD (PORCINE) 5,000 UNIT/ML 1 ML SYRINGE SUBCUT SCH (05:37)
[2017-12-18 06:36] LABS: HEMATOCRIT 30.6 % (36.0-47.0); MEAN CORPUSCULAR HEMOGLOBIN 33.1 pg (27.0-33.4); MEAN CORPUSCULAR VOLUME 92 fl (80-97); PLATELET COUNT 207 10^3/uL (150-450); RED BLOOD COUNT 3.32 10^6/uL (3.72-5.28); WHITE BLOOD COUNT 7.4 10^3/uL (4.0-10.5)
[2017-12-18 06:57] LABS: ANION GAP 11 (5-19); BLOOD UREA NITROGEN 3 mg/dL (7-20); CALCIUM 8.4 mg/dL (8.4-10.2); CARBON DIOXIDE 20 mmol/L (22-30); CHLORIDE 112 mmol/L (98-107); GLUCOSE 107 mg/dL (75-110); POTASSIUM 3.3 mmol/L (3.6-5.0); SODIUM 142.7 mmol/L (137-145)
--- NOTE | 2017-12-18 09:08 | PDOC DISCHARGE SUMMARY ---
General - Admit/Disc Date/PCP Admission Date/Primary Care Provider: 12/15/17 20:01 Discharge Date: 12/18/17 - Discharge Diagnosis (1) Diabetic ketoacidosis Is this a current diagnosis for this admission?: Yes (3) Bipolar disorder Is this a current diagnosis for this admission?: Yes - Additional Information Resuscitation Status: Full Code Home Medications: Albuterol Sulfate [Proair HFA Inhalation Aerosol 8.5 gm MDI] 1 puff IH Q4HP PRN 12/16/17 Aripiprazole [Abilify] 10 mg PO QHS 12/16/17 Atorvastatin Calcium [Lipitor 40 mg Tablet] 40 mg PO QHS 12/16/17 Duloxetine HCl [Cymbalta] 30 mg PO QHS 12/16/17 Gabapentin [Neurontin 300 mg Capsule] 300 mg PO Q12 12/16/17 Hydroxyzine Pamoate [Vistaril 50 mg Capsule] 50 mg PO DAILYP PRN 12/16/17 Ibuprofen [Motrin 800 mg Tablet] 800 mg PO DAILYP PRN 12/16/17 Insulin Lispro [Humalog Insulin (Lispro) 100 unit/mL] 67 unit PUMP DAILY Lisinopril [Prinivil 2.5 mg Tablet] 2.5 mg PO QHS 12/16/17 Ondansetron [Zofran Odt 4 mg Tablet] 4 mg PO Q4HP PRN 12/16/17 Tramadol HCl [Ultram 50 mg Tablet] 50 mg PO Q12HP PRN 12/16/17 Trazodone HCl [Desyrel 50 mg Tablet] 50 mg PO QHS 12/16/17 History of Present Illness History of Present Illness: GERALDO DUNBAR is a 27 year old female who has type 1 diabetes. She not able to tell me much of the history as she is feeling nauseated. She also tells me that she has told several people the story already and she would prefer I get the information from them. What she was able to tell me is that she just moved from [place] to [place] to live with her boyfriend. She is working on getting her SSI transferred to [place] and does not have her insurance yet and yesterday she ran out of insulin for her insulin pump. Earlier today she started to have some chest discomfort along with nausea vomiting and abdominal pain. Her blood glucose was very elevated and secondary to all of those findings and extreme weakness she came into the ER. She has been diagnosed with diabetic ketoacidosis and is being admitted to the hospitalist service, to the ICU. Hospital Course Hospital Course: This is 27 years old female patient originally from [place], admitted with impression of diabetic ketoacidosis. Patient admitted to the ICU where she has been treated with insulin drip IV hydration and replacement of her electrolytes. Yesterday patient switched to subcu long-acting insulin and short -acting Humalog after she is able to eat and tolerate food. Patient uses insulin pump for her diabetes but she ran out of medication. I will send there was prescription for Humalog for her insulin pump. Patient advised to follow- up with her primary care physician or her primary endocrinologists. And also advised to comply with her medication and watch her diet. This morning I seen patient resting in bed comfortably she is not in pain or any form of distress. She is awake alert and oriented. His vital signs and her labs are within normal limits. Patient is good to go. Physical Exam Vital Signs: Temp Pulse Resp BP Pulse Ox 97.8 F 76 20 137/70 H 100 12/18/17 04:17 12/18/17 04:17 12/18/17 04:17 12/18/17 04:17 12/18/17 04:17 Intake & Output 12/17/17 12/18/17 12/19/17 06:59 06:59 06:59 Intake Total 6601 256 Output Total 2300 1000 Balance 4301 -744 General appearance: PRESENT: no acute distress, well-developed, well-nourished Head exam: PRESENT: atraumatic, normocephalic Eye exam: PRESENT: conjunctiva pink, EOMI, PERRLA. ABSENT: scleral icterus Ear exam: PRESENT: normal external ear exam Mouth exam: PRESENT: moist, tongue midline Neck exam: ABSENT: carotid bruit, JVD, lymphadenopathy, thyromegaly Respiratory exam: PRESENT: clear to auscultation ruth. ABSENT: rales, rhonchi, wheezes Cardiovascular exam: PRESENT: RRR. ABSENT: diastolic murmur, rubs, systolic murmur Pulses: PRESENT: normal dorsalis pedis pul Vascular exam: PRESENT: normal capillary refill GI/Abdominal exam: PRESENT: normal bowel sounds, soft. ABSENT: distended, guarding, mass, organolmegaly, rebound, tenderness Rectal exam: PRESENT: deferred Extremities exam: PRESENT: full ROM. ABSENT: calf tenderness, clubbing, pedal edema Neurological exam: PRESENT: alert, awake, oriented to person, oriented to place , oriented to time, oriented to situation. ABSENT: motor sensory deficit Psychiatric exam: PRESENT: appropriate affect, normal mood. ABSENT: homicidal ideation, suicidal ideation Skin exam: PRESENT: dry, intact, warm. ABSENT: cyanosis, rash Results Laboratory Results: 12/18/17 05:45 12/18/17 05:45 12/17/17 12/18/17 12/18/17 08:00 05:45 05:45 WBC 7.4 RBC 3.32 L Hgb 11.0 L Hct 30.6 L MCV 92 MCH 33.1 MCHC 36.0 RDW 13.0 Plt Count 207 Sodium 142.4 142.7 Potassium 3.9 3.3 L Chloride 118 H 112 H Carbon Dioxide 18 L 20 L Anion Gap 6 11 BUN 4 L 3 L Creatinine 0.49 L 0.51 L Est GFR ( Amer) > 60 > 60 Est GFR (Non-Af Amer) > 60 > 60 Glucose 88 107 Calcium 8.2 L 8.4 Magnesium 1.6 12/16/17 12/16/17 00:07 02:00 Troponin I < 0.012 < 0.012 Impressions: Chest X-Ray 12/15/17 00:00 IMPRESSION: Right jugular line in good positioning. No pneumothorax Qualifiers - * PATIENT BEING DISCHARGED WITH ANY OF THE FOLLOWING DIAGNOSIS: No
[2017-12-18 10:42] VITALS: BP 113/62
[2017-12-18] MEDS: ARIPIPRAZOLE 5 MG TABLET PO SCH (10:45)
[2017-12-18] MEDS: DULOXETINE HCL 30 MG CAPSULE.DR PO SCH (10:46)
[2017-12-18] MEDS: INSULIN GLARGINE,HUM.REC.ANLOG 1,000 UNIT/10 ML UNIT SUBCUT SCH (10:46)
== END 2017-12-18 11:04 | disposition home or self-care (01) | DRG 639 ==
LOC: ER 16:13 → EH 20:01 → ICU 22:27 → 3W 12-17 13:24
PROVIDERS: ADMIT Internal Medicine; ATTEND Internal Medicine
PROC: 02HV33Z Insertion of Infusion Device into Superior Vena Cava, Percutaneous Approach (ICD-10-PCS; principal; 2017-12-15)
DX: E10.10 Type 1 diabetes mellitus with ketoacidosis without coma (principal); F31.9 Bipolar disorder, unspecified; N18.2 Chronic kidney disease, stage 2 (mild); L30.9 Dermatitis, unspecified; F43.10 Post-traumatic stress disorder, unspecified; E10.22 Type 1 diabetes mellitus with diabetic chronic kidney disease; F41.9 Anxiety disorder, unspecified; E66.9 Obesity, unspecified; E78.00 Pure hypercholesterolemia, unspecified; K21.9 Gastro-esophageal reflux disease without esophagitis; G89.29 Other chronic pain; Z68.32 Body mass index [BMI] 32.0-32.9, adult; Z79.899 Other long term (current) drug therapy; Z79.4 Long term (current) use of insulin; Z96.41 Presence of insulin pump (external) (internal); Z90.49 Acquired absence of other specified parts of digestive tract; Z88.6 Allergy status to analgesic agent; Z88.8 Allergy status to other drugs, medicaments and biological substances; Z91.14 Patient's other noncompliance with medication regimen; Z81.8 Family history of other mental and behavioral disorders
CPT/HCPCS: 36415; 71045; 80048; 80053; 80061; 80307; 81001; 82550; 82803; 82962; 83036; 83605; 83690; 83735; 84100; 84484; 84703; 85025; 85027; 85610; 85730; 87040; 93005; 93010; 96360; 99291; C1751; J1642; J1644; J1815; J2405; J2550; J2765; J3480; J3490; J7030; S0119; S0164

== ENCOUNTER 2018-01-17 07:49 | Emergency (ER) | payer MEDICAID ==
[2018-01-17] MEDS ORDERED: NORMAL SALINE 1000 ML 1,000 ML IV ONE (08:17)
[2018-01-17] MEDS ORDERED: METOCLOPRAMIDE HCL INJ/PF 10 MG/2 ML SDV IV ONE (08:23)
--- NOTE | 2018-01-17 08:40 | ER Document Report ---
ED General - General Chief Complaint: Nausea/Vomiting Stated Complaint: VOMITING Time Seen by Provider: 01/17/18 08:14 TRAVEL OUTSIDE OF THE [place] IN LAST 30 DAYS: No - HPI Notes: Patient is a 27-year-old female with a past medical history significant for insulin dependent diabetes, familial polyposis and stage 2 renal failure (on lisinopril) who presents to the ED complaining of nausea, vomiting, intermittent abdominal cramping in her epigastrium 2 days. Patient states that she is running low on her insulin and does not have an appointment with her PCM until June should be her first visit. Patient states that she has not had any blood in her vomit. She still able to eat and drink, but does have a decreased p.o. intake. Patient states that she has had urinary urgency. She is having normal bowel movements. No other concerns or complaints at this time. Pt was in DKA 1mo ago, but states that she does not believe it to be the case this time. Denies any headache, fever, URI, sore throat, chest pain, palpitations, syncope, cough, shortness of breath, wheeze, dyspnea, diarrhea, hematuria, back pain, loss of control of bowel or bladder, numbness/tingling, muscle paralysis/weakness, or rash. - Related Data Allergies/Adverse Reactions: chlorpromazine [From Thorazine] Allergy (Verified 01/17/18 07:51) Hives diazepam [From Valium] Allergy (Verified 01/17/18 07:51) Hives lamotrigine [From Lamictal] Allergy (Verified 01/17/18 07:51) Hives lorazepam [From Ativan] Allergy (Verified 01/17/18 07:51) Hives medroxyprogesterone [From Depo-Provera] Allergy (Verified 01/17/18 07:51) Hives morphine Adverse Reaction (Verified 01/17/18 07:51) Hyperactivity zolpidem [From Ambien] Adverse Reaction (Verified 01/17/18 07:51) panic attack Past Medical History - Social History Smoking Status: Current Every Day Smoker Family History: Reviewed & Not Pertinent - Past Medical History Cardiac Medical History: Denies: Hx Atrial Fibrillation, Hx Congestive Heart Failure Pulmonary Medical History: Denies: Hx Asthma Endocrine Medical History: Reports: Hx Diabetes Mellitus Type 1 Renal/ Medical History: Denies: Hx Peritoneal Dialysis Musculoskeletal Medical History: Denies Hx Arthritis Skin Medical History: Reports Hx Eczema Psychiatric Medical History: Reports: Hx Anxiety, Hx Bipolar Disorder, Hx Post Traumatic Stress Disorder Past Surgical History: Reports: Hx Bowel Surgery - Total colectomy, previous ileostomy., Other - 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 Review of Systems - Review of Systems -: Yes All other systems reviewed and negative Physical Exam - Vital signs Vitals: Temp Pulse Resp BP Pulse Ox 98.3 F 114 H 18 134/88 H 96 01/17/18 07:53 01/17/18 07:53 01/17/18 07:53 01/17/18 07:53 01/17/18 07:53 - Notes Notes: PHYSICAL EXAMINATION: GENERAL: Well-appearing, well-nourished and in no acute distress. HEAD: Atraumatic, normocephalic. EYES: Pupils equal round and reactive to light, extraocular movements intact, sclera anicteric, conjunctiva are normal. ENT: Nares patent and without discharge. oropharynx clear without exudates. No tonsilar hypertrophy or erythema. Moist mucous membranes. NECK: Normal range of motion, supple without lymphadenopathy LUNGS: Breath sounds clear to auscultation bilaterally and equal. No wheezes rales or rhonchi. HEART: Regular rate and rhythm without murmurs, rubs, gallops. ABDOMEN: Soft, nondistended abdomen. No guarding, no rebound. No masses appreciated. Normal bowel sounds present. No CVA tenderness bilaterally. + mild epigastric tenderness. Hernandez neg. No tenderness at McBurney point. Musculoskeletal: FROM to passive/active. Strength 5+/5. Extremities: No cyanosis, clubbing, or edema b/l. Peripheral pulses 2+. Capillary refill less than 3 seconds. NEUROLOGICAL: Normal speech, normal gait. PSYCH: Normal mood, normal affect. SKIN: Warm, Dry, normal turgor, no rashes or lesions noted. Course - Re-evaluation Re-evalutation: 01/17/18 11:53 Patient is an afebrile, well-hydrated, 27-year-old female who presents to the ED with epigastric pain and acute UTI. Vitals are acceptable without any significant tachycardia, tachypnea, or hypoxia. PE is otherwise unremarkable. Patient's abdomen is currently soft and nontender. Patient did receive a GI cocktail and fluids which resolved patient's symptoms. Patient states that she is feeling much better at this time and is ready to go home. Her CBC, CMP, hCG , venous blood gas, lipase, lactic acid were unremarkable for any acute pathology. See urinalysis results which did have some contaminant, but trace bacteria showing up. I will start her on Keflex while we wait for urine culture which will not be ready until Saturday. Advised patient to start the medications and then call Saturday for further guidance at that time based on her urine culture results. Patient is tolerating p.o. without any difficulties and is nontoxic-appearing. Low suspicion/risk for acute appendicitis, bowel obstruction, acute cholecystitis, acute cholangitis, perforated diverticulitis, incarcerated hernia, pancreatitis, perforated ulcer, peritonitis, sepsis, pelvic inflammatory disease, ectopic , tubo-ovarian abscess, ovarian torsion, or other systemic emergent condition at this time. Patient is aware that her condition can change from initial presentation and she needs to monitor symptoms closely and seek medical attention if any acute changes. I will send her home with a prescription for omeprazole and Carafate as well as Zofran in addition to the Keflex. Conservative measures otherwise for symptoms. Recheck with your PCM in 2-3 days. Consider consult with a equal opportunity director. Return to the ED with any worsening/concerning symptoms otherwise as reviewed in discharge. Patient is in agreement. - Vital Signs Vital signs: Temp Pulse Resp BP Pulse Ox 98.3 F 114 H 18 107/47 L 97 01/17/18 07:53 01/17/18 07:53 01/17/18 11:01 01/17/18 11:01 01/17/18 11:01 - Laboratory Result Diagrams: 01/17/18 10:02 01/17/18 10:02 Laboratory results interpreted by me: 01/17/18 01/17/18 01/17/18 10:02 10:02 10:40 WBC 10.8 H Glucose 112 H Urine Protein >=500 H Urine Glucose (UA) 50 H Urine Ketones TRACE H Urine Blood SMALL H Urine Bilirubin SMALL H Urine Urobilinogen 2.0 H Discharge - Discharge Clinical Impression: Epigastric pain, Acute UTI (urinary tract infection) Condition: Stable Disposition: HOME, SELF-CARE Instructions: Cephalexin ([facility]), Urinary Tract Infection ([facility]), Abdominal Pain ( [facility]), Antinausea Medication ([facility]), Family Physicians / Practices Additional Instructions: Push fluids (i.e. water, cranberry juice) Proper hygenic technique Keep the skin clean Tylenol/ibuprofen as needed Take medications as directed F/u with your PCM in 2-3 days for a recheck Consider consult with a Urologist/equal opportunity director for ongoing/worsening symptoms. Return to the ED with any worsening symptoms and/or development of fever, headache, chest pain, palpitations, syncope, shortness of breath, trouble breathing, abdominal pain, n/v/d, blood in stool/urine, loss of control of bowel /bladder, urinary retention, or other worsening symptoms that are concerning to you. Prescriptions: Cephalexin Monohydrate [Keflex 500 mg Capsule] 500 mg PO TID #21 capsule Insulin Lispro [Humalog] 100 unit SQ ASDIR 30 Days cartridge Omeprazole 20 mg PO DAILY #30 tablet. Ondansetron [Zofran Odt 4 mg Tablet] 1 - 2 tab PO Q4H PRN #15 tab.rapdis PRN Reason: For Nausea/Vomiting Sucralfate [Carafate] 1 gm PO QID PRN #420 ml PRN Reason: Forms: Smoking Cessation Education Referrals: [facility] [Provider Group] - Follow up as needed [facility] [Provider Group] - Follow up as needed
[2018-01-17 10:19] LABS: VENOUS BLOOD BASE EXCESS 2.4 mmol/L; VENOUS BLOOD HCO3 27.5 mmol/L (20-32); VENOUS BLOOD PCO2 44.4 mmHg (35-63); VENOUS BLOOD PH 7.41 (7.30-7.42)
[2018-01-17 10:22] LABS: ABSOLUTE EOSINOPHILS # (AUTO) 0.3 10^3/uL (0.0-0.6); ABSOLUTE MONOCYTES (AUTO) 0.7 10^3/uL (0.1-1.4); ABSOLUTE NEUT (AUTO) 7.8 10^3/uL (1.7-8.2); BASOPHILS % (AUTO) 0.3 % (0-2); EOSINOPHILS % (AUTO) 2.7 % (0-6); HEMATOCRIT 40.5 % (36.0-47.0); LYMPHOCYTES % (AUTO) 18.5 % (13-45); MEAN CORPUSCULAR HEMOGLOBIN 32.3 pg (27.0-33.4); MEAN CORPUSCULAR HGB CONC 34.6 g/dL (32.0-36.0); MEAN CORPUSCULAR VOLUME 94 fl (80-97); MONOCYTES % (AUTO) 6.1 % (3-13); PLATELET COUNT 324 10^3/uL (150-450); RED BLOOD COUNT 4.33 10^6/uL (3.72-5.28); RED CELL DISTRIBUTION WIDTH 13.3 % (11.5-14.0); SEGMENTED NEUTROPHILS % (AUTO) 72.4 % (42-78); TOTAL CELLS COUNTED % (AUTO) 100 %; WHITE BLOOD COUNT 10.8 10^3/uL (4.0-10.5)
[2018-01-17 10:40] LABS: ALANINE AMINOTRANSFERASE 36 U/L (9-52); ALBUMIN 3.8 g/dL (3.5-5.0); ALKALINE PHOSPHATASE 97 U/L (38-126); ANION GAP 13 (5-19); ASPARTATE AMINO TRANSFERASE 24 U/L (14-36); BILIRUBIN,DIRECT 0.2 mg/dL (0.0-0.4); BILIRUBIN,TOTAL 0.9 mg/dL (0.2-1.3); BLOOD UREA NITROGEN 12 mg/dL (7-20); CALCIUM 9.5 mg/dL (8.4-10.2); CARBON DIOXIDE 25 mmol/L (22-30); CHLORIDE 105 mmol/L (98-107); GLUCOSE 112 mg/dL (75-110); LIPASE 32.4 U/L (23-300); POTASSIUM 3.8 mmol/L (3.6-5.0); SODIUM 142.7 mmol/L (137-145); TOTAL PROTEIN 6.5 g/dL (6.3-8.2)
[2018-01-17] MEDS ORDERED: LIDOCAINE 2% VISCOUS SOLN 20 ML UDCUP PO ONE (10:55)
[2018-01-17] MEDS ORDERED: METOCLOPRAMIDE HCL ORAL SOLN 10 MG/10 ML UDCUP PO ONE (10:55)
[2018-01-17] MEDS ORDERED: MAG HYDROX/AL HYDROX/SIMETH SUSP 30 ML UDCUP PO ONE (10:55)
[2018-01-17 11:32] LABS: AMORPHOUS SEDIMENT,URINE TRACE /HPF; APPEARANCE,URINE TURBID; BILIRUBIN,URINE SMALL (NEGATIVE); COLOR,URINE AMBER; GLUCOSE, URINE 50 mg/dL (NEGATIVE); KETONES,URINE TRACE mg/dL (NEGATIVE); LEUKOCYTE ESTERASE,URINE NEGATIVE (NEGATIVE); NITRITE,URINE NEGATIVE (NEGATIVE); PROTEIN,URINE >=500 mg/dL (NEGATIVE); URINE SPECIFIC GRAVITY 1.032
[2018-01-17 12:55] VITALS: BP 124/71
== END 2018-01-17 12:55 | disposition home or self-care (01) ==
LOC: ER 07:49
DX: N39.0 Urinary tract infection, site not specified (principal); R10.13 Epigastric pain; R11.2 Nausea with vomiting, unspecified; E10.9 Type 1 diabetes mellitus without complications; Z79.4 Long term (current) use of insulin
CPT/HCPCS: 99284; 96361; 96374; 36415; 83605; 83690; 85025; 81025; 80053; 81001; 82803; J3490 ×3; J2765; J7030

== ENCOUNTER 2018-01-18 16:26 | Emergency (ER) | payer MEDICAID ==
[2018-01-18] MEDS ORDERED: FAMOTIDINE 20 MG TABLET PO ONE (17:28)
[2018-01-18] MEDS ORDERED: ONDANSETRON 4 MG TAB.RAPDIS PO ONE (17:28)
--- NOTE | 2018-01-18 17:30 | ER Document Report ---
ED Medical Screen (RME) - General Chief Complaint: Nausea/Vomiting Stated Complaint: NAUSEA/VOMITING Time Seen by Provider: 01/18/18 16:44 Notes: 27-year-old female to the emergency department complaining of nausea vomiting and abdominal pain. Patient states that she was seen here yesterday and discharge with Zofran but nothing is helping. States that she cannot keep anything down. Blood sugars been running over 200. Patient is a type I diabetic. I have greeted and performed a rapid initial assessment of this patient. A comprehensive ED assessment and evaluation of the patient, analysis of test results and completion of the medical decision making process will be conducted by additional ED providers. TRAVEL OUTSIDE OF THE [place] IN LAST 30 DAYS: No - Related Data Allergies/Adverse Reactions: chlorpromazine [From Thorazine] Allergy (Verified 01/18/18 16:27) Hives diazepam [From Valium] Allergy (Verified 01/18/18 16:27) Hives lamotrigine [From Lamictal] Allergy (Verified 01/18/18 16:27) Hives lorazepam [From Ativan] Allergy (Verified 01/18/18 16:27) Hives medroxyprogesterone [From Depo-Provera] Allergy (Verified 01/18/18 16:27) Hives morphine Adverse Reaction (Verified 01/18/18 16:27) Hyperactivity zolpidem [From Ambien] Adverse Reaction (Verified 01/18/18 16:27) panic attack Past Medical History - Social History Chew tobacco use (# tins/day): No Frequency of alcohol use: Occasional Drug Abuse: None - Past Medical History Cardiac Medical History: Denies: Hx Atrial Fibrillation, Hx Congestive Heart Failure Pulmonary Medical History: Denies: Hx Asthma Endocrine Medical History: Reports: Hx Diabetes Mellitus Type 1 Renal/ Medical History: Denies: Hx Peritoneal Dialysis Musculoskeltal Medical History: Denies Hx Arthritis Skin Medical History: Reports Hx Eczema Psychiatric Medical History: Reports: Hx Anxiety, Hx Bipolar Disorder, Hx Post Traumatic Stress Disorder Past Surgical History: Reports: Hx Bowel Surgery - Total colectomy, previous ileostomy., Other - 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 - Immunizations History of Influenza Vaccine for 03/2017 - 08/2017 Season: Unknown Review of Systems - Review of Systems Notes: Review of systems positive for the following: Pain, nausea, vomiting, hyperglycemia, UTI Physical Exam - Vital signs Vitals: Temp Pulse Resp BP Pulse Ox 99.3 F 93 20 127/75 H 97 01/18/18 16:36 01/18/18 16:36 01/18/18 16:36 01/18/18 16:36 01/18/18 16:36 Interpretation: Normal - General General appearance: Appears well, Alert - Respiratory Respiratory status: No respiratory distress Chest status: Nontender Breath sounds: Normal Chest palpation: Normal - Cardiovascular Rhythm: Regular Heart sounds: Normal auscultation Murmur: No - Abdominal Inspection: Normal Distension: No distension Bowel sounds: Normal Tenderness: Nontender Organomegaly: No organomegaly Course - Vital Signs Vital signs: Temp Pulse Resp BP Pulse Ox 99.3 F 93 20 127/75 H 97 01/18/18 16:36 01/18/18 16:36 01/18/18 16:36 01/18/18 16:36 01/18/18 16:36
[2018-01-18 18:22] LABS: APPEARANCE,URINE SLIGHTLY-CLOUDY; BILIRUBIN,URINE NEGATIVE (NEGATIVE); COLOR,URINE YELLOW; GLUCOSE, URINE >=500 mg/dL (NEGATIVE); KETONES,URINE TRACE mg/dL (NEGATIVE); LEUKOCYTE ESTERASE,URINE NEGATIVE (NEGATIVE); NITRITE,URINE NEGATIVE (NEGATIVE); PROTEIN,URINE 30 mg/dL (NEGATIVE); URINE SPECIFIC GRAVITY 1.031; UROBILINOGEN,URINE NEGATIVE mg/dL (<2.0)
--- NOTE | 2018-01-18 19:11 | ER Document Report ---
ED GI/ - General Chief Complaint: Nausea/Vomiting Stated Complaint: NAUSEA/VOMITING Time Seen by Provider: 01/18/18 16:44 Mode of Arrival: Ambulatory Information source: Patient Notes: 27-year-old female presented ED for complaint of nausea vomiting and abdominal pain. She states she was seen yesterday discharged home with [facility] but she is continued to vomit. She is a type I diabetic. She states her sugar was 260 around 4:00 and she took the insulin that she has normally takes with her insulin pump. TRAVEL OUTSIDE OF THE [place] IN LAST 30 DAYS: No - HPI Patient complains to provider of: Abdominal pain, Vomiting Timing/Duration: Persistent Quality of pain: Cramping Severity at maximum: Moderate Severity in ED: Moderate Pain Level: 4 Location: Other - Generalized abdominal pain Associated symptoms: Nausea, Vomiting Exacerbated by: Denies Relieved by: Denies Similar symptoms previously: Yes Recently seen / treated by doctor: Yes - Related Data Allergies/Adverse Reactions: chlorpromazine [From Thorazine] Allergy (Verified 01/18/18 16:27) Hives diazepam [From Valium] Allergy (Verified 01/18/18 16:27) Hives lamotrigine [From Lamictal] Allergy (Verified 01/18/18 16:27) Hives lorazepam [From Ativan] Allergy (Verified 01/18/18 16:27) Hives medroxyprogesterone [From Depo-Provera] Allergy (Verified 01/18/18 16:27) Hives morphine Adverse Reaction (Verified 01/18/18 16:27) Hyperactivity zolpidem [From Ambien] Adverse Reaction (Verified 01/18/18 16:27) panic attack Past Medical History - General Information source: Patient - Social History Smoking Status: Current Every Day Smoker Cigarette use (# per day): Yes - Pack per day Chew tobacco use (# tins/day): No Smoking Education Provided: Yes - 4 min Frequency of alcohol use: Social Drug Abuse: Marijuana - States she has not smoked pot in the last week Lives with: Family Family History: Reviewed & Not Pertinent Patient has suicidal ideation: No Patient has homicidal ideation: No - Past Medical History Cardiac Medical History: Reports: None Pulmonary Medical History: Reports: None EENT Medical History: Reports: None Neurological Medical History: Reports: None Endocrine Medical History: Reports: Hx Diabetes Mellitus Type 1 Renal/ Medical History: Reports: None Malignancy Medical History: Reports: None GI Medical History: Reports: Other - Familial polyposis total colectomy ileostomy then with reanastomosis Musculoskeletal Medical History: Reports None Skin Medical History: Reports Hx Eczema Psychiatric Medical History: Reports: Hx Anxiety, Hx Bipolar Disorder, Hx Post Traumatic Stress Disorder Traumatic Medical History: Reports: None Infectious Medical History: Reports: None Past Surgical History: Reports: Hx Bowel Surgery - Total colectomy, previous ileostomy with reanastomosis to rectum., Other - 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 Review of Systems - Review of Systems Constitutional: No symptoms reported EENT: No symptoms reported Cardiovascular: No symptoms reported Respiratory: No symptoms reported Gastrointestinal: Abdominal pain, Nausea, Vomiting Genitourinary: No symptoms reported Female Genitourinary: No symptoms reported Musculoskeletal: No symptoms reported Skin: No symptoms reported Hematologic/Lymphatic: No symptoms reported Neurological/Psychological: No symptoms reported -: Yes All other systems reviewed and negative Physical Exam - Vital signs Vitals: Temp Pulse Resp BP Pulse Ox 99.3 F 93 20 127/75 H 97 01/18/18 16:36 01/18/18 16:36 01/18/18 16:36 01/18/18 16:36 01/18/18 16:36 Interpretation: Normal - General General appearance: Appears well, Alert - HEENT Head: Normocephalic, Atraumatic Eyes: Normal Pupils: PERRL - Respiratory Respiratory status: No respiratory distress Chest status: Nontender Breath sounds: Normal Chest palpation: Normal - Cardiovascular Rhythm: Regular Heart sounds: Normal auscultation Murmur: No - Abdominal Inspection: Healed incision - Abdominal scars multiple from multiple surgeries Distension: No distension Bowel sounds: Normal Tenderness: Tender. No: McBurney's point, Hernandez's sign, Guarding, Rebound Organomegaly: No organomegaly - Back Back: Normal, Nontender - Extremities General upper extremity: Normal inspection, Nontender, Normal color, Normal ROM , Normal temperature General lower extremity: Normal inspection, Nontender, Normal color, Normal ROM , Normal temperature, Normal weight bearing. No: Hans's sign - Neurological Neuro grossly intact: Yes Cognition: Normal Orientation: AAOx4 [place] Coma Scale Eye Opening: Spontaneous [place] Coma Scale Verbal: Oriented [place]one Coma Scale Motor: Obeys Commands Simone Coma Scale Total: 15 Speech: Normal Motor strength normal: LUE, RUE, LLE, RLE Sensory: Normal - Psychological Associated symptoms: Normal affect, Normal mood - Skin Skin Temperature: Warm Skin Moisture: Dry Skin Color: Normal Course - Re-evaluation Re-evalutation: 01/18/18 21:36 Labs discussed with patient and written report of labs given to patient. Patient was treated with a liter of fluids and medications that were prescribed and PIP. Patient verbalized understanding and agreement with treatment plan. Patient was discharged home with a prescription for Phenergan. Patient was given multiple doctors names and numbers to follow-up as she states she cannot get into her doctor until June. - Vital Signs Vital signs: Temp Pulse Resp BP Pulse Ox 98.4 F 70 16 124/78 100 01/18/18 21:20 01/18/18 21:20 01/18/18 21:20 01/18/18 21:20 01/18/18 21:20 - Laboratory Result Diagrams: 01/18/18 20:10 01/18/18 20:10 Laboratory results interpreted by me: 01/18/18 01/18/18 17:31 20:10 Sodium 145.1 H Glucose 127 H Urine Protein 30 H Urine Glucose (UA) >=500 H Urine Ketones TRACE H Urine Blood SMALL H Discharge - Discharge Clinical Impression: Nausea & vomiting Qualifiers: Vomiting type: unspecified Vomiting Intractability: non-intractable Qualified Code(s): R11.2 - Nausea with vomiting, unspecified Condition: Stable Disposition: HOME, SELF-CARE Instructions: Family Physicians / Practices Additional Instructions: VOMITING: Vomiting (or nausea without vomiting) can be caused by many other different problems. It can mean that something's wrong with the stomach, such as ulcers or inflammation or the intestinal tract, such as appendicitis. But it can also be a symptom of a problem that has nothing to do with the stomach or intestines. Vomiting is common with severe headaches, earaches, tonsillitis, and kidney infections, etc. We see it with pneumonia or heart attacks. Drugs can cause nausea and vomiting. Many abdominal problems cause vomiting; for example, gallstones, kidney stones, pancreatitis, and intestinal obstruction ( blocked bowels). In most cases, curing the vomiting depends on fixing the problem that caused it. For temporary relief, we may use an anti-nausea medicine. For home use, we can prescribe suppositories, chewable pills, pills that dissolve in the mouth, or liquid anti-nausea drugs. If the vomiting seems to be caused by a problem in the stomach, acid-suppressing drugs may be prescribed as well. It's important to avoid dehydration. Sip small amounts of clear liquids ( soft drinks, tea, broth, etc) . Try to take fluids frequently even if you are vomiting to prevent dehydration. Take increasing amounts of fluid and when liquids are being consumed successfully, advance to small amounts of bland food (toast, soups, mashed potatoes, etc.) until you are able to resume a regular diet. Avoid aspirin, tobacco, and alcohol. If the vomiting worsens, if the problem that's making you vomit worsens, or if there's evidence of bleeding in the stomach (such as black, tarry stool, or bloody or black vomit), you should return immediately. Also, return if abdominal pain worsens or becomes localized to one area or you develop high fever. Call your doctor if you aren't improved in 24 hours. VIRAL SYNDROME: The physician has diagnosed a viral infection. Viruses not only cause "colds," but can cause many different symptoms including generalized aching, fever, headache, cough, diarrhea, nausea, vomiting, and fatigue. The treatment, for the most part, is simply relief of symptoms. This means that antibiotics are usually not given. Rest, fluids, pain medications and, occasionally, medication for the specific symptoms that are most bothersome will be prescribed. Use good handwashing to avoid passing the virus to others. Shared toys should be cleaned with disinfectant. Clean the toilets, sinks, and counter surfaces in bathrooms. Launder clothing in hot water. Contact the physician if you develop any new or unusual symptoms such as severe headache, stiff neck, high fever, chest pain, productive cough, or shortness of breath. You should be rechecked if you don't see marked improvement within seven to 10 days. INTRAVENOUS (I V) FLUIDS: As part of your care today, you received intravenous (IV) fluids. IV fluids are administered to patients who are dehydrated or to those who have certain chemical (electrolyte) abnormalities that need correcting. ANTINAUSEA MEDICATION: You have been given a medication to suppress nausea and vomiting. This type of medication can be given as a shot, pill, or suppository. It will usually last for many hours. Pills and shots usually last six to eight hours. For the typical illness, only one or two doses of the medication may be necessary. Mild lightheadedness may occur. This type of medicine can cause drowsiness. Do not drive or operate dangerous machinery while under its influence. Do not mix with alcohol. See your doctor at once if you have muscle spasms or tightness, or uncontrollable motions (particularly of the neck, mouth, or jaw). Persistent vomiting or severe lightheadedness should also be evaluated by the physician. FOLLOW-UP CARE: If you have been referred to a physician for follow-up care, call the physician s office for an appointment as you were instructed or within the next two days. If you experience worsening or a significant change in your symptoms, notify the physician immediately or return to the Emergency Department at any time for re-evaluation. Prescriptions: Promethazine HCl [Phenergan 25 mg Tablet] 25 mg PO Q6H PRN #15 tablet PRN Reason: Forms: Elevated Blood Pressure, Smoking Cessation Education, Return to Work Referrals: ELKE DIETRICH NP [Primary Care Provider] - Follow up as needed [facility] [Provider Group] - Follow up as needed
[2018-01-18 20:33] LABS: ABSOLUTE EOSINOPHILS # (AUTO) 0.3 10^3/uL (0.0-0.6); ABSOLUTE LYMPHOCYTES (AUTO) 2.7 10^3/uL (0.5-4.7); ABSOLUTE MONOCYTES (AUTO) 0.6 10^3/uL (0.1-1.4); ABSOLUTE NEUT (AUTO) 6.5 10^3/uL (1.7-8.2); BASOPHILS % (AUTO) 0.3 % (0-2); HEMATOCRIT 40.5 % (36.0-47.0); HEMOGLOBIN 14.1 g/dL (12.0-15.5); LYMPHOCYTES % (AUTO) 26.7 % (13-45); MEAN CORPUSCULAR HEMOGLOBIN 32.7 pg (27.0-33.4); MEAN CORPUSCULAR VOLUME 94 fl (80-97); MONOCYTES % (AUTO) 6.4 % (3-13); PLATELET COUNT 323 10^3/uL (150-450); RED BLOOD COUNT 4.33 10^6/uL (3.72-5.28); RED CELL DISTRIBUTION WIDTH 13.4 % (11.5-14.0); SEGMENTED NEUTROPHILS % (AUTO) 63.6 % (42-78); TOTAL CELLS COUNTED % (AUTO) 100 %; WHITE BLOOD COUNT 10.2 10^3/uL (4.0-10.5)
[2018-01-18 20:48] LABS: ALANINE AMINOTRANSFERASE 35 U/L (9-52); ALBUMIN 4.2 g/dL (3.5-5.0); ALKALINE PHOSPHATASE 80 U/L (38-126); ANION GAP 15 (5-19); ASPARTATE AMINO TRANSFERASE 27 U/L (14-36); BILIRUBIN,DIRECT 0.2 mg/dL (0.0-0.4); BILIRUBIN,TOTAL 0.6 mg/dL (0.2-1.3); BLOOD UREA NITROGEN 10 mg/dL (7-20); CALCIUM 9.9 mg/dL (8.4-10.2); CARBON DIOXIDE 25 mmol/L (22-30); CHLORIDE 105 mmol/L (98-107); GLUCOSE 127 mg/dL (75-110); POTASSIUM 3.9 mmol/L (3.6-5.0); SODIUM 145.1 mmol/L (137-145); TOTAL PROTEIN 7.1 g/dL (6.3-8.2)
[2018-01-18] MEDS ORDERED: RINGERS SOLUTION,LACTATED 1,000 ML IV ONE (20:51)
[2018-01-18 21:15] LABS: VENOUS BLOOD BASE EXCESS 0.5 mmol/L; VENOUS BLOOD HCO3 25.6 mmol/L (20-32); VENOUS BLOOD PCO2 43.1 mmHg (35-63); VENOUS BLOOD PH 7.39 (7.30-7.42)
[2018-01-18 21:23] VITALS: BP 124/78
== END 2018-01-18 21:57 | disposition home or self-care (01) ==
LOC: ER 16:26
DX: R11.2 Nausea with vomiting, unspecified (principal); R10.84 Generalized abdominal pain; E10.9 Type 1 diabetes mellitus without complications; Z96.41 Presence of insulin pump (external) (internal); F12.10 Cannabis abuse, uncomplicated; F17.210 Nicotine dependence, cigarettes, uncomplicated; Z71.6 Tobacco abuse counseling; Z88.8 Allergy status to other drugs, medicaments and biological substances; Z90.49 Acquired absence of other specified parts of digestive tract
CPT/HCPCS: 99406; 99284; 96360; 36415; 83690; 85025; 80053; 81001; 82803; J3490; S0119; J7120

== ENCOUNTER 2018-03-02 10:36 | Inpatient (IN) | payer MEDICAID ==
[2018-03-02] MEDS ORDERED: NORMAL SALINE 1000 ML 1,000 ML IV ONE ×2 (10:51→10:53)
[2018-03-02] MEDS ORDERED: ONDANSETRON HCL INJ/PF 4 MG/2 ML SDV IV ONE (10:54)
[2018-03-02] MEDS ORDERED: INSULIN REG, HUMAN 100 UNIT/ML 3 ML VIAL (PYX) IV ONE (10:54)
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
[2018-03-02 13:02] LABS: COLOR,URINE STRAW
[2018-03-02 13:03] LABS: APPEARANCE,URINE SLIGHTLY-CLOUDY; BILIRUBIN,URINE NEGATIVE (NEGATIVE); GLUCOSE, URINE >=1000 mg/dL (NEGATIVE); KETONES,URINE 300 mg/dL (NEGATIVE); LEUKOCYTE ESTERASE,URINE NEGATIVE (NEGATIVE); NITRITE,URINE NEGATIVE (NEGATIVE); PROTEIN,URINE 30 mg/dL (NEGATIVE); URINE SPECIFIC GRAVITY 1.027; UROBILINOGEN,URINE NEGATIVE mg/dL (<2.0)
[2018-03-02] MEDS ORDERED: INSULIN REG, HUMAN 100 UNIT/ML 3 ML VIAL (PYX) ONE ×2 (13:35→17:33)
[2018-03-02] MEDS ORDERED: ONDANSETRON HCL INJ/PF 4 MG/2 ML SDV ONE (13:36)
--- NOTE | 2018-03-02 13:42 | ER Document Report ---
ED General - General Chief Complaint: Nausea/Vomiting Stated Complaint: NAUSEA/VOMITING Time Seen by Provider: 03/02/18 10:50 Mode of Arrival: Ambulatory Information source: Patient TRAVEL OUTSIDE OF THE [place] IN LAST 30 DAYS: No - HPI Patient complains to provider of: Feeling like in DKA Onset: Other - This 27-year-old female presents after having run out of insulin 3 days prior because of her cane, on arrival she notes that she feels generally fatigued, has had recurrent vomiting today as well as abdominal pain which feels like previous episodes in which she has gone into DKA. She denies any recent illnesses preceding this event, says that the last time was approximately 5 months prior when she also had run out of insulin. Nothing is seemed to make this any better, time seems to be making it worse. She did check her blood sugar twice today both which were at an unmeasurable a high level. - Related Data Allergies/Adverse Reactions: chlorpromazine [From Thorazine] Allergy (Verified 01/18/18 16:27) Hives diazepam [From Valium] Allergy (Verified 01/18/18 16:27) Hives lamotrigine [From Lamictal] Allergy (Verified 01/18/18 16:27) Hives lorazepam [From Ativan] Allergy (Verified 01/18/18 16:27) Hives medroxyprogesterone [From Depo-Provera] Allergy (Verified 01/18/18 16:27) Hives morphine Adverse Reaction (Verified 01/18/18 16:27) Hyperactivity zolpidem [From Ambien] Adverse Reaction (Verified 01/18/18 16:27) panic attack Past Medical History - General Information source: Patient - Social History Smoking Status: Current Every Day Smoker Chew tobacco use (# tins/day): No Frequency of alcohol use: None Drug Abuse: None Family History: Reviewed & Not Pertinent Patient has suicidal ideation: No Patient has homicidal ideation: No - Past Medical History Cardiac Medical History: Denies: Hx Atrial Fibrillation, Hx Congestive Heart Failure Pulmonary Medical History: Denies: Hx Asthma Endocrine Medical History: Reports: Hx Diabetes Mellitus Type 1 Renal/ Medical History: Denies: Hx Peritoneal Dialysis Musculoskeletal Medical History: Denies Hx Arthritis Skin Medical History: Reports Hx Eczema Psychiatric Medical History: Reports: Hx Anxiety, Hx Bipolar Disorder, Hx Post Traumatic Stress Disorder Past Surgical History: Reports: Hx Bowel Surgery - Total colectomy, previous ileostomy with reanastomosis to rectum., Other - 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 Review of Systems - Review of Systems -: Yes All other systems reviewed and negative Physical Exam - Vital signs Vitals: Temp Pulse Resp BP Pulse Ox 97.9 F 120 H 16 116/73 98 03/02/18 10:39 03/02/18 10:39 03/02/18 10:39 03/02/18 10:39 03/02/18 10:39 - General General appearance: Lethargic In distress: Moderate - HEENT Head: Normocephalic Eyes: Normal Conjunctiva: Normal Cornea: Normal Extraocular movements intact: Yes Eyelashes: Normal Pupils: PERRL - Respiratory Respiratory status: Tachypnea Chest status: Accessory muscle use Breath sounds: Normal Chest palpation: Normal - Cardiovascular Rhythm: Tachycardia Heart sounds: Normal auscultation Murmur: No - Abdominal Inspection: Normal Distension: No distension Tenderness: Nontender - Back Back: Normal - Extremities General upper extremity: Normal inspection, Nontender, Normal ROM, Normal strength General lower extremity: Normal inspection, Nontender, Normal ROM, Normal strength - Neurological Neuro grossly intact: Yes Cognition: Normal Orientation: AAOx4 [place] Coma Scale Eye Opening: Spontaneous [place] Coma Scale Verbal: Oriented [place] Coma Scale Motor: Obeys Commands Simone Coma Scale Total: 15 Speech: Normal Cranial nerves: Normal Cerebellar coordination: Normal Motor strength normal: LUE, RUE, LLE, RLE - Psychological Associated symptoms: Normal affect Course - Re-evaluation Re-evalutation: 03/02/18 15:02 This 27-year-old presents with signs and symptoms suggestive of DKA. On examination the patient with difficulty of obtaining access, multiple attempts were obtained for peripheral access, as well as an attempt at an external jugular vein IV. Because of the lack of access and the necessity of administering large volume resuscitation administered a central line. Noted that patient had a marked leukocytosis as well as acidosis on her VBG. She also was noted to have market hyperglycemia. We will initiate treatment utilizing insulin, will administer fluids, will obtain an x-ray for confirmation of placement of central line. We will plan for this patient undergo admission to the hospital for management of her diabetic ketoacidosis at this time. 03/02/18 15:19 Have discussed case with hospitalist they agreed to admission at this time - Vital Signs Vital signs: Temp Pulse Resp BP Pulse Ox 97.9 F 120 H 20 116/73 99 03/02/18 10:39 03/02/18 10:39 03/02/18 14:00 03/02/18 10:39 03/02/18 14:00 - Laboratory Result Diagrams: 03/02/18 14:28 03/02/18 14:28 Laboratory results interpreted by me: 03/02/18 03/02/18 03/02/18 11:40 14:28 14:28 WBC 23.8 H Seg Neuts % (Manual) 89 H Band Neutrophils % 1 L Lymphocytes % (Manual) 6 L Abs Neuts (Manual) 21.4 H VBG pH 7.15 L* VBG pCO2 27.4 L VBG HCO3 9.4 L Urine Protein 30 H Urine Glucose (UA) >=1000 H Urine Ketones 300 H Urine Blood LARGE H Procedures - Central Line Right Internal jugular Consent obtained: Yes - oral consent Central line pre-insertion: Chloraprep applied Central line lumen type: Triple Anesthetic type: 1% Lidocaine mL's of anesthesia: 5 Ultrasound guided: Yes CM at insertion site: 16 Line secured with sutures: Yes Central line post-insertion: Blood return from lumens, Biopatch applied, Sutured , Sterile dressing applied Number of attempts: 1 Complications: No Critical Care Note - Critical Care Note Total time excluding time spent on procedures (mins): 45 Discharge - Discharge Clinical Impression: Diabetic ketoacidosis Qualifiers: Diabetes mellitus type: other specified (including ERIKA) Diabetes mellitus complication detail: without coma Qualified Code(s): E13.10 - Other specified diabetes mellitus with ketoacidosis without coma Nausea & vomiting Qualifiers: Vomiting type: unspecified Vomiting Intractability: non-intractable Qualified Code(s): R11.2 - Nausea with vomiting, unspecified Condition: Critical Disposition: ADMITTED INPATIENT Admitting Provider: Hospitalist Unit Admitted: IMCU Referrals: ELKE DIETRICH NP [COMMUNITY BASED STAFF] - Follow up as needed
[2018-03-02 14:48] LABS: VENOUS BLOOD BASE EXCESS -17.9 mmol/L; VENOUS BLOOD HCO3 9.4 mmol/L (20-32); VENOUS BLOOD PCO2 27.4 mmHg (35-63)
[2018-03-02 14:52] LABS: HEMATOCRIT 41.8 % (36.0-47.0); HEMOGLOBIN 13.8 g/dL (12.0-15.5); MEAN CORPUSCULAR HEMOGLOBIN 31.9 pg (27.0-33.4); MEAN CORPUSCULAR HGB CONC 33.1 g/dL (32.0-36.0); MEAN CORPUSCULAR VOLUME 97 fl (80-97); PLATELET COUNT 366 10^3/uL (150-450); RED BLOOD COUNT 4.33 10^6/uL (3.72-5.28); RED CELL DISTRIBUTION WIDTH 12.8 % (11.5-14.0); VENOUS BLOOD PH 7.15 (7.30-7.42); WHITE BLOOD COUNT 23.8 10^3/uL (4.0-10.5)
[2018-03-02 15:06] LABS: ALANINE AMINOTRANSFERASE 19 U/L (9-52); ALBUMIN 4.2 g/dL (3.5-5.0); ALKALINE PHOSPHATASE 114 U/L (38-126); ASPARTATE AMINO TRANSFERASE 17 U/L (14-36); BILIRUBIN,DIRECT 0.8 mg/dL (0.0-0.4); BILIRUBIN,TOTAL 1.4 mg/dL (0.2-1.3); BLOOD UREA NITROGEN 24 mg/dL (7-20); LIPASE 19.9 U/L (23-300); TOTAL PROTEIN 7.1 g/dL (6.3-8.2)
[2018-03-02 15:11] LABS: CHLORIDE 99 mmol/L (98-107); SODIUM 132.2 mmol/L (137-145)
[2018-03-02 15:12] LABS: ABSOLUTE LYMPHOCYTES# (MANUAL) 1.4 10^3/uL (0.5-4.7); ABSOLUTE NEUTROPHILS# (MANUAL) 21.4 10^3/uL (1.7-8.2); BAND NEUTROPHILS % (MANUAL) 1 % (3-5); BASOPHILS % (MANUAL) 0 % (0-2); CREATINE KINASE < 20 U/L (30-135); EOSINOPHILS % (MANUAL) 0 % (0-6); LYMPHOCYTES % (MANUAL) 6 % (13-45); MONOCYTES % (MANUAL) 4 % (3-13); SEGMENTED NEUTROPHILS % (MAN) 89 % (42-78); TOTAL CELLS COUNTED 100
[2018-03-02 15:13] LABS: ANION GAP 24 (5-19); BURR CELLS SLIGHT; OVALOCYTES SLIGHT; PLATELET COMMENT ADEQUATE; POIKILOCYTOSIS SLIGHT
[2018-03-02 15:26] LABS: CARBON DIOXIDE 9 mmol/L (22-30); GLUCOSE 630 mg/dL (75-110); POTASSIUM 6.3 mmol/L (3.6-5.0)
--- NOTE | 2018-03-02 15:29 | RADIOLOGY REPORT (SQ) ---
EXAM DESCRIPTION: CHEST SINGLE VIEW COMPLETED DATE/TIME: 03/02/2018 3:18 pm REASON FOR STUDY: central line COMPARISON: 12/15/2017 EXAM PARAMETERS: NUMBER OF VIEWS: One view. TECHNIQUE: Single frontal radiographic view of the chest acquired. RADIATION DOSE: NA LIMITATIONS: None. FINDINGS: LUNGS AND PLEURA: No opacities, masses or pneumothorax. No pleural effusion. MEDIASTINUM AND HILAR STRUCTURES: No masses. Contour normal. HEART AND VASCULAR STRUCTURES: Heart normal in size. Normal vasculature. BONES: No acute findings. HARDWARE: IJ line unchanged. OTHER: No other significant finding. IMPRESSION: NO ACUTE RADIOGRAPHIC FINDING IN THE CHEST. TECHNICAL DOCUMENTATION: JOB ID: [id number] [employer]- All Rights Reserved Reading location - IP/workstation name: [email or web address]
[2018-03-02] MEDS ORDERED: DEXTROSE 50%-WATER 25 GM/50 ML DISP.SYRIN IV PRN ×2 (16:42)
[2018-03-02] MEDS ORDERED: DEXTROSE 40% GEL 15 GM TUBE PO PRN ×2 (16:42)
[2018-03-02] MEDS ORDERED: ACETAMINOPHEN 325 MG TABLET PO PRN (16:42)
[2018-03-02] MEDS ORDERED: ALBUTEROL SULFATE 0.083% NEB 2.5 MG/3 ML AMPUL NEB PRN (16:42)
[2018-03-02] MEDS ORDERED: GLUCAGON,HUMAN RECOMB 1 MG INJ SUBCUT PRN (16:42)
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
[2018-03-02] MEDS: NORMAL SALINE 100 ML with INSULIN REGULAR, HUMAN 100 UNIT IV PRN ×2 (17:36)
[2018-03-02] MEDS ORDERED: CEFTRIAXONE 1 GM/D5W RTU 1 GM/50 ML RTUPB IV SCH (18:00)
[2018-03-02] MEDS: CEFTRIAXONE SODIUM 1,000 MG in NORMAL SALINE 50 ML IV SCH (18:20)
[2018-03-02 18:34] LABS: BLOOD UREA NITROGEN 22 mg/dL (7-20); CALCIUM 9.1 mg/dL (8.4-10.2); POTASSIUM 5.5 mmol/L (3.6-5.0)
[2018-03-02 18:40] LABS: CHLORIDE 107 mmol/L (98-107); SODIUM 134.8 mmol/L (137-145)
[2018-03-02 18:46] LABS: ANION GAP 21 (5-19)
[2018-03-02 18:47] LABS: CARBON DIOXIDE 7 mmol/L (22-30); GLUCOSE 492 mg/dL (75-110)
[2018-03-02] MEDS: ONDANSETRON HCL INJ/PF 4 MG/2 ML SDV IV PRN (18:53)
[2018-03-02] MEDS ORDERED: NORMAL SALINE 1000 ML 1,000 ML IV PRN (20:32)
[2018-03-02] MEDS: KETOROLAC TROMETHAMINE INJ/PF 30 MG/1 ML SDV IV PRN (20:57)
[2018-03-03 00:30] LABS: BLOOD UREA NITROGEN 20 mg/dL (7-20); CALCIUM 8.7 mg/dL (8.4-10.2); GLUCOSE 139 mg/dL (75-110)
[2018-03-03 00:31] LABS: CHLORIDE 110 mmol/L (98-107)
[2018-03-03 01:10] LABS: ANION GAP 10 (5-19); SODIUM 136.2 mmol/L (137-145)
[2018-03-03] MEDS: ONDANSETRON HCL INJ/PF 4 MG/2 ML SDV IV PRN ×3 (01:26→16:56)
[2018-03-03] MEDS ORDERED: NORMAL SALINE 1000 ML 1,000 ML IV ONE (01:30)
[2018-03-03 01:33] LABS: CARBON DIOXIDE 16 mmol/L (22-30)
[2018-03-03] MEDS: NORMAL SALINE 100 ML with INSULIN REGULAR, HUMAN 100 UNIT IV PRN ×4 (01:51→07:31)
[2018-03-03] MEDS: KETOROLAC TROMETHAMINE INJ/PF 30 MG/1 ML SDV IV PRN ×2 (02:20→10:16)
[2018-03-03] MEDS: POTASSI CL 20 MEQ/D5-1/2NS 1L 1000 ML IV PRN ×2 (02:30→08:23)
--- NOTE | 2018-03-03 05:16 | EKG REPORT ---
SEVERITY:- OTHERWISE NORMAL ECG - SINUS TACHYCARDIA : Confirmed by: Paris Drake 03-Mar-2018 05:15:58
[2018-03-03 06:31] LABS: ABSOLUTE LYMPHOCYTES (AUTO) 2.6 10^3/uL (0.5-4.7); ABSOLUTE MONOCYTES (AUTO) 0.8 10^3/uL (0.1-1.4); ABSOLUTE NEUT (AUTO) 13.1 10^3/uL (1.7-8.2); BASOPHILS % (AUTO) 0.1 % (0-2); EOSINOPHILS % (AUTO) 0.2 % (0-6); HEMATOCRIT 31.8 % (36.0-47.0); LYMPHOCYTES % (AUTO) 15.8 % (13-45); MEAN CORPUSCULAR HEMOGLOBIN 32.2 pg (27.0-33.4); PLATELET COUNT 280 10^3/uL (150-450); RED BLOOD COUNT 3.47 10^6/uL (3.72-5.28); RED CELL DISTRIBUTION WIDTH 12.7 % (11.5-14.0); SEGMENTED NEUTROPHILS % (AUTO) 78.9 % (42-78); TOTAL CELLS COUNTED % (AUTO) 100 %; WHITE BLOOD COUNT 16.7 10^3/uL (4.0-10.5)
[2018-03-03 06:39] LABS: HEMOGLOBIN 11.2 g/dL (12.0-15.5)
[2018-03-03 06:40] LABS: MEAN CORPUSCULAR VOLUME 92 fl (80-97)
[2018-03-03 06:56] LABS: ANION GAP 9 (5-19); BLOOD UREA NITROGEN 15 mg/dL (7-20); CALCIUM 8.2 mg/dL (8.4-10.2); CARBON DIOXIDE 18 mmol/L (22-30); CHLORIDE 110 mmol/L (98-107); GLUCOSE 172 mg/dL (75-110); POTASSIUM 3.9 mmol/L (3.6-5.0); SODIUM 136.5 mmol/L (137-145)
[2018-03-03] MEDS ORDERED: HYDROMORPHONE HCL INJ/PF 2 MG/ML AMPULE SUBCUT PRN (08:57)
[2018-03-03] MEDS ORDERED: PROMETHAZINE HCL 25 MG TABLET PO PRN ×2 (08:59→10:30)
[2018-03-03] MEDS ORDERED: INSULIN GLARGINE,HUM.REC.ANLOG 1,000 UNIT/10 ML UNIT SUBCUT ONE ×2 (10:00→10:04)
[2018-03-03] MEDS ORDERED: PROMETHAZINE HCL 25 MG TABLET ONE (10:05)
[2018-03-03] MEDS: ENOXAPARIN SODIUM INJ 40 MG/0.4 ML DISP.SYRIN SUBCUT SCH (10:19)
[2018-03-03] MEDS: DOCUSATE SODIUM 100 MG CAPSULE PO SCH (10:19)
[2018-03-03] MEDS: PROMETHAZINE HCL INJ 25 MG/1 ML VIAL IV PRN ×2 (12:22→18:56)
[2018-03-03] MEDS: INSULIN LISPRO 100 UNIT/ML 3 ML VIAL SUBCUT PRN ×2 (12:46→21:44)
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
[2018-03-03] MEDS ORDERED: INSULIN LISPRO 100 UNIT/ML 3 ML VIAL SUBCUT ONE (16:45)
[2018-03-03] MEDS: CEFTRIAXONE SODIUM 1,000 MG in NORMAL SALINE 50 ML IV SCH (17:45)
[2018-03-03] MEDS: TRAZODONE HCL 50 MG TABLET PO SCH (21:43)
[2018-03-04 06:54] LABS: ANION GAP 11 (5-19); BLOOD UREA NITROGEN 13 mg/dL (7-20); CALCIUM 8.6 mg/dL (8.4-10.2); CARBON DIOXIDE 16 mmol/L (22-30); CHLORIDE 108 mmol/L (98-107); POTASSIUM 4.5 mmol/L (3.6-5.0); SODIUM 135.2 mmol/L (137-145)
[2018-03-04 07:04] LABS: GLUCOSE 451 mg/dL (75-110)
[2018-03-04] MEDS: INSULIN LISPRO 100 UNIT/ML 3 ML VIAL SUBCUT SCH ×3 (08:01→17:13)
[2018-03-04] MEDS: INSULIN LISPRO 100 UNIT/ML 3 ML VIAL SUBCUT PRN ×4 (08:02→22:39)
[2018-03-04] MEDS: KETOROLAC TROMETHAMINE INJ/PF 30 MG/1 ML SDV IV PRN ×2 (08:02→18:15)
[2018-03-04] MEDS ORDERED: INSULIN GLARGINE,HUM.REC.ANLOG 300 UNIT/3 ML INSULN.PEN SUBCUT SCH ×2 (10:00→22:00)
[2018-03-04] MEDS: ENOXAPARIN SODIUM INJ 40 MG/0.4 ML DISP.SYRIN SUBCUT SCH (10:53)
[2018-03-04] MEDS: DOCUSATE SODIUM 100 MG CAPSULE PO SCH (10:53)
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
[2018-03-04] MEDS: PROMETHAZINE HCL INJ 25 MG/1 ML VIAL IV PRN (17:12)
[2018-03-04] MEDS: CEFTRIAXONE SODIUM 1,000 MG in NORMAL SALINE 50 ML IV SCH (17:13)
[2018-03-04] MEDS: TRAZODONE HCL 50 MG TABLET PO SCH (22:45)
[2018-03-05 04:57] LABS: ABSOLUTE EOSINOPHILS # (AUTO) 0.2 10^3/uL (0.0-0.6); ABSOLUTE LYMPHOCYTES (AUTO) 2.8 10^3/uL (0.5-4.7); ABSOLUTE MONOCYTES (AUTO) 0.5 10^3/uL (0.1-1.4); ABSOLUTE NEUT (AUTO) 3.6 10^3/uL (1.7-8.2); BASOPHILS % (AUTO) 0.5 % (0-2); EOSINOPHILS % (AUTO) 3.3 % (0-6); HEMOGLOBIN 11.2 g/dL (12.0-15.5); MEAN CORPUSCULAR HEMOGLOBIN 32.6 pg (27.0-33.4); MEAN CORPUSCULAR HGB CONC 35.1 g/dL (32.0-36.0); MEAN CORPUSCULAR VOLUME 93 fl (80-97); MONOCYTES % (AUTO) 7.5 % (3-13); PLATELET COUNT 236 10^3/uL (150-450); RED BLOOD COUNT 3.44 10^6/uL (3.72-5.28); RED CELL DISTRIBUTION WIDTH 12.5 % (11.5-14.0); SEGMENTED NEUTROPHILS % (AUTO) 49.7 % (42-78); TOTAL CELLS COUNTED % (AUTO) 100 %; WHITE BLOOD COUNT 7.2 10^3/uL (4.0-10.5)
[2018-03-05 05:23] LABS: ALANINE AMINOTRANSFERASE 20 U/L (9-52); ALBUMIN 2.7 g/dL (3.5-5.0); ALKALINE PHOSPHATASE 69 U/L (38-126); ANION GAP 6 (5-19); ASPARTATE AMINO TRANSFERASE 11 U/L (14-36); BILIRUBIN,DIRECT 0.2 mg/dL (0.0-0.4); BILIRUBIN,TOTAL 0.2 mg/dL (0.2-1.3); BLOOD UREA NITROGEN 17 mg/dL (7-20); CALCIUM 8.6 mg/dL (8.4-10.2); CARBON DIOXIDE 22 mmol/L (22-30); CHLORIDE 111 mmol/L (98-107); GLUCOSE 273 mg/dL (75-110); SODIUM 139.1 mmol/L (137-145); TOTAL PROTEIN 5.3 g/dL (6.3-8.2)
[2018-03-05] MEDS: KETOROLAC TROMETHAMINE INJ/PF 30 MG/1 ML SDV IV PRN ×3 (08:13→21:13)
[2018-03-05] MEDS: PROMETHAZINE HCL INJ 25 MG/1 ML VIAL IV PRN ×2 (08:14→15:01)
[2018-03-05] MEDS: INSULIN LISPRO 100 UNIT/ML 3 ML VIAL SUBCUT SCH ×3 (08:14→17:50)
[2018-03-05] MEDS: INSULIN LISPRO 100 UNIT/ML 3 ML VIAL SUBCUT PRN (08:14)
[2018-03-05] MEDS: DOCUSATE SODIUM 100 MG CAPSULE PO SCH (09:53)
[2018-03-05] MEDS: ENOXAPARIN SODIUM INJ 40 MG/0.4 ML DISP.SYRIN SUBCUT SCH (09:54)
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
[2018-03-05] MEDS: TRAZODONE HCL 50 MG TABLET PO SCH (21:13)
[2018-03-05] MEDS: INSULIN GLARGINE,HUM.REC.ANLOG 300 UNIT/3 ML INSULN.PEN SUBCUT SCH (21:20)
[2018-03-06 06:16] LABS: ABSOLUTE EOSINOPHILS # (AUTO) 0.3 10^3/uL (0.0-0.6); ABSOLUTE LYMPHOCYTES (AUTO) 2.7 10^3/uL (0.5-4.7); ABSOLUTE MONOCYTES (AUTO) 0.4 10^3/uL (0.1-1.4); ABSOLUTE NEUT (AUTO) 2.7 10^3/uL (1.7-8.2); BASOPHILS % (AUTO) 0.2 % (0-2); EOSINOPHILS % (AUTO) 4.7 % (0-6); HEMATOCRIT 33.2 % (36.0-47.0); HEMOGLOBIN 11.7 g/dL (12.0-15.5); LYMPHOCYTES % (AUTO) 44.4 % (13-45); MEAN CORPUSCULAR HEMOGLOBIN 32.3 pg (27.0-33.4); MEAN CORPUSCULAR HGB CONC 35.2 g/dL (32.0-36.0); MEAN CORPUSCULAR VOLUME 92 fl (80-97); MONOCYTES % (AUTO) 6.3 % (3-13); PLATELET COUNT 252 10^3/uL (150-450); RED BLOOD COUNT 3.62 10^6/uL (3.72-5.28); RED CELL DISTRIBUTION WIDTH 12.5 % (11.5-14.0); SEGMENTED NEUTROPHILS % (AUTO) 44.4 % (42-78); TOTAL CELLS COUNTED % (AUTO) 100 %; WHITE BLOOD COUNT 6.1 10^3/uL (4.0-10.5)
[2018-03-06] MEDS: KETOROLAC TROMETHAMINE INJ/PF 30 MG/1 ML SDV IV PRN ×3 (06:20→20:41)
[2018-03-06 06:29] LABS: ALANINE AMINOTRANSFERASE 30 U/L (9-52); ALBUMIN 2.9 g/dL (3.5-5.0); ALKALINE PHOSPHATASE 62 U/L (38-126); ANION GAP 5 (5-19); ASPARTATE AMINO TRANSFERASE 27 U/L (14-36); BILIRUBIN,DIRECT 0.2 mg/dL (0.0-0.4); BILIRUBIN,TOTAL 0.2 mg/dL (0.2-1.3); BLOOD UREA NITROGEN 17 mg/dL (7-20); CALCIUM 8.6 mg/dL (8.4-10.2); CARBON DIOXIDE 23 mmol/L (22-30); CHLORIDE 113 mmol/L (98-107); GLUCOSE 109 mg/dL (75-110); POTASSIUM 3.5 mmol/L (3.6-5.0); TOTAL PROTEIN 5.7 g/dL (6.3-8.2)
[2018-03-06] MEDS: INSULIN LISPRO 100 UNIT/ML 3 ML VIAL SUBCUT SCH ×3 (07:48→17:13)
[2018-03-06] MEDS: DOCUSATE SODIUM 100 MG CAPSULE PO SCH (09:44)
[2018-03-06] MEDS: ENOXAPARIN SODIUM INJ 40 MG/0.4 ML DISP.SYRIN SUBCUT SCH (09:44)
[2018-03-06] MEDS: INSULIN LISPRO 100 UNIT/ML 3 ML VIAL SUBCUT PRN (12:50)
[2018-03-06] MEDS: PROMETHAZINE HCL INJ 25 MG/1 ML VIAL IV PRN (15:13)
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
[2018-03-06] MEDS: TRAZODONE HCL 50 MG TABLET PO SCH (21:23)
[2018-03-06] MEDS: INSULIN GLARGINE,HUM.REC.ANLOG 300 UNIT/3 ML INSULN.PEN SUBCUT SCH (22:37)
[2018-03-07] MEDS: PROMETHAZINE HCL INJ 25 MG/1 ML VIAL IV PRN (08:31)
[2018-03-07] MEDS: KETOROLAC TROMETHAMINE INJ/PF 30 MG/1 ML SDV IV PRN ×2 (08:31→15:07)
[2018-03-07] MEDS: INSULIN LISPRO 100 UNIT/ML 3 ML VIAL SUBCUT SCH ×2 (08:32→12:10)
[2018-03-07] MEDS: ENOXAPARIN SODIUM INJ 40 MG/0.4 ML DISP.SYRIN SUBCUT SCH (09:22)
[2018-03-07] MEDS: DOCUSATE SODIUM 100 MG CAPSULE PO SCH (09:22)
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
[2018-03-07] MEDS: INSULIN LISPRO 100 UNIT/ML 3 ML VIAL SUBCUT PRN (12:11)
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
[2018-03-07 16:16] VITALS: BP 112/54
== END 2018-03-07 18:55 | disposition home or self-care (01) | DRG 639 ==
LOC: ER 10:36 → EH 15:24 → 3N 03-03 00:07
PROVIDERS: ADMIT Internal Medicine; ATTEND Internal Medicine
PROC: 05HM33Z Insertion of Infusion Device into Right Internal Jugular Vein, Percutaneous Approach (ICD-10-PCS; principal; 2018-03-02)
DX: E10.10 Type 1 diabetes mellitus with ketoacidosis without coma (principal); T38.3X6A Underdosing of insulin and oral hypoglycemic [antidiabetic] drugs, initial encounter; F17.210 Nicotine dependence, cigarettes, uncomplicated; F31.9 Bipolar disorder, unspecified; F41.9 Anxiety disorder, unspecified; F43.10 Post-traumatic stress disorder, unspecified; Z65.5 Exposure to disaster, war and other hostilities; Z79.899 Other long term (current) drug therapy; Z79.4 Long term (current) use of insulin; Z88.6 Allergy status to analgesic agent; Z90.49 Acquired absence of other specified parts of digestive tract; Z59.6 Low income
CPT/HCPCS: 36415; 71045; 80048; 80053; 81001; 81025; 82550; 82803; 82962; 83690; 83735; 85025; 93005; 93010; 96361; 96374; 99291; C1751; J0696; J1650; J1815; J1885; J2405; J2550; J3480; J3490